=== PATIENT | male | born 1960 | race Caucasian/White ===

== ENCOUNTER 2017-07-07 08:10 | Day surgery (SDC) | payer MEDICARE ==
[~2017-07-07 08:10] MED LIST: Lactated Ringers 1,000 ML IV SCH
[2017-07-07] MEDS ORDERED: DIPRIVAN 200 MG/20 ML IV ONE (08:11)
[2017-07-07] MEDS ORDERED: Ketamine HCl 50 MG/ML IV ONE (08:11)
--- NOTE | 2017-07-07 08:20 | HP ---
DATE OF SURGERY: 07/07/2017 HISTORY OF PRESENT ILLNESS: The patient is a 56 year-old with stomach aches epigastrium now some abdomen ache, occasional nausea and vomiting. Also past history of polyps. He is in need of follow up upper and lower endoscopy. No change in bowel movements. No current bloody stools. Epigastric and mid abdominal pain unclear etiology could be gastritis, peptic ulcer disease, celiac or other etiology as well as history of polyps. I feel the patient will benefit from upper and lower endoscopy for further evaluation. The patient has history of deep venous thrombosis and is on Eliquis so he will need to temporarily hold the Eliquis denzel-operatively. PAST MEDICAL HISTORY: Diabetes, chronic back pain, history of deep venous thrombosis in the past. PAST SURGICAL HISTORY: Penile prosthesis, spinal stimulator. MEDICATIONS: Includes Ativan, bupropion, Eliquis, Cialis, duloxetine, Eliquis, furosemide, lamotrigine, lisinopril, metformin, pantoprazole, potassium chloride, Tamsulosin, tizanidine, pioglitazone, trazodone. ALLERGIES: NKDA. FAMILY HISTORY: Heart disease and diabetes. SOCIAL HISTORY: No alcohol abuse. REVIEW OF SYSTEMS: Twelve systems reviewed per admission assessment. No chest pain or palpitations other systems negative or noncontributory as above and per preadmission questionnaire. PHYSICAL EXAMINATION: GENERAL: No acute distress. HEENT: Sclerae nonicteric. NECK: No JVD. CHEST: Equal excursion, nonlabored breathing. CVS: Regular rate and rhythm. ABDOMEN: Soft. No peritoneal signs. EXTREMITIES: No significant edema. NEURO: Alert, moving extremities symmetrically. No gross motor deficits noted. RECTAL: Deferred timed to endoscopy exam. IMPRESSION: Mid to upper abdominal pain associated with some nausea and vomiting as well as history of polyps, in need of EGD and colonoscopy for further evaluation. He was shown the risk sheet and explained the procedure in detail including but not limited to bleeding or infection, risk of bowel injury or perforation possibly requiring open procedure, risk of missed or nondiagnosis or incomplete exam possibly requiring barium enema, other studies or procedures. He understands and agrees to the planned procedure and will proceed with EGD and colonoscopy as an outpatient under MAC anesthesia.
[2017-07-07 12:18] VITALS: PULSE 70; O2SAT 97
[2017-07-07 12:22] VITALS: BP 158/94
--- NOTE | 2017-07-07 15:31 | OP ---
SURGERY DATE/TIME: 07/07/2017 1023 PREOPERATIVE DIAGNOSIS: History of mid abdomen epigastric pain, nausea and vomiting as well as polyps. Need for upper and lower endoscopy. POSTOPERATIVE DIAGNOSES: 1) Erosive gastritis. 2) Poor colon prep limiting exam. 3) Mild diverticulosis. 4) Small internal and external hemorrhoids. 5) Small raised lesion versus early polyp or hyperplastic lesion rectum. PROCEDURES: 1) EGD with cold biopsy of the antrum Helicobacter pylori. 2) Cold biopsy of small bowel to evaluate for celiac sprue. 3) Colonoscopy to cecum with hot biopsy raised lesion versus early polyp of rectum. SURGEON: Dr. Sean Lyons. ANESTHESIA: MAC. ESTIMATED BLOOD LOSS: Minimal. INDICATIONS: As noted above. Risks and benefits explained in detail and not limited to and consent obtained. DESCRIPTION OF PROCEDURE AND FINDINGS: The patient is taken to the operating room. MAC anesthesia introduced. After official time out and no disagreement with planned procedure, a bite block positioned. Video gastroscope easily passed down the esophagus through the patent pylorus to the junction of the second and third portion of the duodenum. Given his symptom complaints of nausea, vomiting, abdominal pain, I felt he warranted biopsy for celiac sprue. A cold biopsy taken in the small bowel to evaluate for celiac sprue. There were no signs of any ulcers or obvious masses. Good hemostasis noted. The scope pulled back in the stomach. He did have some erosive gastritis. Cold biopsy taken to evaluate for Helicobacter pylori. There were no signs of any obvious ulcers, no signs of any obvious polyps, masses or other mucosal lesions. On retroflex the gastroesophageal junction is snug against the scope. There were no signs of any hiatal hernia. The scope pulled back to gastroesophageal junction. The Z-line was crisp. No signs of any esophagitis. No signs of any Mcadams's or any obvious mass. Gastroesophageal junction was about 40 cm. The remainder of the esophagus grossly unremarkable. No signs of any obvious mucosal lesions on withdrawal of the scope but the esophagus did have a few tertiary esophageal contractions. The scope is withdrawn. The patient tolerated this procedure well. Attention was then turned to the colonoscopy. Digital rectal exam did not reveal any masses. He did have some internal and external hemorrhoids. Video colonoscope inserted and passed up the tortuous sigmoid, descending and transverse colon, descending colon. Appendiceal orifice and valve well visualized. Prep overall was poor with several areas of liquidy, semisolid and solid stool limiting exam. It was too thick to suction completely through the scope. It was suction irrigated as well as possible but did limit the exam for small lesions. On slow careful withdrawal of the scope over 12 to 15 minutes there was no signs of any large polyps, masses or obstructing lesions. He did have some mild diverticulosis. Again the prep did limit the exam for small lesions. He did have a very small raised lesion versus early polyp or hyperplastic lesion in the rectum that was removed with hot biopsy forceps. Good hemostasis was noted. Otherwise he had some small internal and external hemorrhoids. The scope is withdrawn. The patient tolerated the procedure well. Findings discussed with the family out in the waiting area.
== END 2017-07-07 12:00 | disposition home or self-care (01) ==
LOC: SDC 08:10
PROVIDERS: ATTEND Surgery
DX: K29.00 Acute gastritis without bleeding (principal); K57.90 Diverticulosis of intestine, part unspecified, without perforation or abscess without bleeding; K64.4 Residual hemorrhoidal skin tags; K64.8 Other hemorrhoids; K63.9 Disease of intestine, unspecified; K62.1 Rectal polyp
CPT/HCPCS: 88305; J2704

== ENCOUNTER 2024-03-03 06:50 | Day surgery (SDC) | payer MEDICARE ==
[2012-11-13 13:15] VITALS: BP 148/93
== END 2024-03-03 07:04 | disposition home or self-care (01) ==
LOC: SDC-PAIN 06:50
PROVIDERS: ATTEND Psychiatry & Neurology Pain Medicine
DX: Z53.8 Procedure and treatment not carried out for other reasons (principal)

== ENCOUNTER 2024-03-17 10:19 | Day surgery (SDC) | payer MEDICARE ==
[2012-11-13 13:15] VITALS: BP 148/93
[2024-03-17] MEDS ORDERED: LIDOCAINE HCL 1% AMPUL 5 ML IJ ONE (10:20)
[2024-03-17] MEDS ORDERED: Sodium Chloride 0.9(Preservative Free) 10 ML IJ ONE (10:20)
[2024-03-17] MEDS ORDERED: Depo-Medrol 40 MG/ML IM ONE (10:20)
[2024-03-17] MEDS ORDERED: propofoL IV ONE (12:08)
--- NOTE | 2024-03-17 14:36 | XRAY ---
Indication: Lumbar CHATA. Intraoperative fluoroscopy was provided for 18 seconds. 3 digital spot images submitted for interpretation demonstrates needle tip projecting posterior to L4-L5 interspace. Small amount of contrast injected for needle tip placement. Correlate with intraoperative findings/report.
--- NOTE | 2024-03-17 14:38 | XRAY ---
18 seconds of fluoroscopy was used in surgery for a lumbar CHATA.
== END 2024-03-17 12:46 | disposition home or self-care (01) ==
LOC: SDC-PAIN 10:19
PROVIDERS: ATTEND Psychiatry & Neurology Pain Medicine
DX: M54.16 Radiculopathy, lumbar region (principal); E11.9 Type 2 diabetes mellitus without complications
CPT/HCPCS: 62323; 72100; 77003; 82947; J2704; Q9966

== ENCOUNTER 2024-11-17 07:28 | Day surgery (SDC) | payer MEDICARE ==
[2012-11-13 13:15] VITALS: BP 148/93
[2024-11-17] MEDS ORDERED: BUPIVACAINE 0.5% VIAL IJ ONE (07:29)
[2024-11-17] MEDS ORDERED: methylPREDNISolone acetate IM ONE (07:29)
[2024-11-17] MEDS ORDERED: propofoL IV ONE (08:58)
[2024-11-17] MEDS ORDERED: Lactated Ringers 1,000 ML IV ONE (09:56)
--- NOTE | 2024-11-17 10:26 | XRAY ---
Indication: Bilateral L4-S1 MBB. Intraoperative fluoroscopy provided for 17 seconds. Single digital spot image submitted for interpretation demonstrates posterior needle tips projecting over expected left and right L4-S1 nerve roots. Correlate with intraoperative findings/report. Incidental incompletely visualized epidural lead.
--- NOTE | 2024-11-17 13:07 | XRAY ---
17 seconds of fluoroscopy were used in surgery bilateral L4-S1 MBB.
== END 2024-11-17 09:30 | disposition home or self-care (01) ==
LOC: SDC-PAIN 07:28
PROVIDERS: ATTEND Psychiatry & Neurology Pain Medicine
DX: M47.817 Spondylosis without myelopathy or radiculopathy, lumbosacral region (principal); E11.9 Type 2 diabetes mellitus without complications

== ENCOUNTER 2024-11-19 11:53 | Observation (INO) | payer MEDICARE ==
--- NOTE | 2024-11-19 12:20 | ERPHSYRPT ---
- History of Present Illness Time Seen by Provider: 11/19/24 12:10 Source: patient Patient Subjective Stated Complaint: Pt c/o of sudden onset of SOB last night and it has continued throughout the night, pt did have some ashley chest pressure below his pectorials Triage Nursing Assessment: Pt brought to the ER by his , hypertensive, tachypnic, denies pain, pulses normal, skin n/w/d, ashley lungs rhonchi and wheezing, hx of CHF a few years ago, pt had a numbing procedure to his lower back this week at [facility], denies N&V, doesn't appear to be in any distress Physician History: Patient is a 64-year-old male who presents with shortness of breath that began last night while at rest. The patient's provides some of the history. The patient was just sitting outside last night when he suddenly began to feel short of breath. The patient does report a history of congestive heart failure a few years ago. The patient denies any swelling of his legs or feet. Patient reports that he does have a little bit of chest discomfort. Patient denies any history of asthma or COPD. Timing/Duration: yesterday Activities at Onset: rest Quality: pressure Location: other (Sub-pectorals) Chest Pain Radiation: no radiation Aspirin Treatment Today: no aspirin today Allergies/Adverse Reactions: No Known Drug Allergies Allergy (Verified 11/19/24 12:07) Home Medications: Furosemide 20 mg [Lasix 20 mg] 20 mg PO QA 07/01/17 [History] Metformin HCl 500 mg [Glucophage 500 MG] 1 tab PO BID 07/01/17 [History] Potassium Chloride [K-Dur] 10 meq PO QAM 07/01/17 [History] Tamsulosin HCl 0.4 mg [Flomax 0.4 MG] 0.8 mg PO DAILY 07/01/17 [History] Trazodone HCl 50 mg [Desyrel 50 mg] 150 mg PO QHS 07/01/17 [History] Apixaban [Eliquis 2.5 mg Tablet] 5 mg PO BID 11/19/24 [History] Carvedilol 3.125 mg [Coreg 3.125 MG] 3.125 mg PO BID 11/19/24 [History] Ergocalciferol (Vitamin D2) [Vitamin D2] 50,000 unit PO WEEKLY 11/19/24 [History] Escitalopram Oxalate [Lexapro] 10 mg PO DAILY 11/19/24 [History] Fluticasone Propionate [Flonase Nasal] 16 gm NS BID 11/19/24 [History] Glipizide 10 mg [Glucotrol 10 MG] 20 mg PO BID 11/19/24 [History] Oxycodone HCl/Acetaminophen [Oxycodone-Acetaminophn 7.5-325] 1 tab PO TID PRN 11/19/24 [History] Rosuvastatin Calcium 20 mg PO HS 11/19/24 [History] Semaglutide [Ozempic] 2 mg SQ WEEKLY 11/19/24 [History] Sildenafil Citrate 100 mg PO .30 MIN PRIOR TO SEX PRN 11/19/24 [History] Hx Tetanus, Diphtheria Vaccination/Date Given: Yes Hx Influenza Vaccination/Date Given: Yes (2011) Hx Pneumococcal Vaccination/Date Given: Yes (2011) Travel Risk - International Travel Have you traveled outside of the country in past 3 weeks: No - Emerging Infectious Disease Are you exhibiting symptoms associated with any current EIDs: No - Review of Systems Constitutional: No Fever Respiratory: Cough (Productive thick sputum), Dyspnea, Dyspnea on Exertion (BEACH), Wheezing Cardiac: Chest Pain, No Edema All Other Systems: Reviewed and Negative - Past Medical History Pertinent Past Medical History: Yes Neurological History: Peripheral Neuropathy ENT History: No Pertinent History Cardiac History: Coronary Artery Disease, High Cholesterol, Hypertension Respiratory History: No Pertinent History Endocrine Medical History: Diabetes Type II Musculoskeletal History: Degenerative Disk Disease, Osteoarthritis GI Medical History: No Pertinent History History: No Pertinent History Psycho-Social History: No Pertinent History Male Reproductive Disorders: Prostate Problems Other Medical History: SX HX: SINGLE STENT PLACEMENT 02/2023, SPINAL CORD STIMULATOR PLACED 2014 BUT HAS STOPPED USING IT "IT WASN'T DOING ANYTHING". BILATERAL FEM/POP BYPASS 10/31/23. - Past Surgical History Past Surgical History: Yes Neuro Surgical History: Other Cardiac: No Pertinent History Respiratory: No Pertinent History Gastrointestinal: No Pertinent History Genitourinary: Other Musculoskeletal: No Pertinent History Male Surgical History: No Pertinent History Other Surgical History: had penile implant and has had a spinal stimulator for pain Significant Family History: diabetes, hypertension - Social History Smoking Status: Current every day smoker Exposure to second hand smoke: Yes Drug Use: none - Social Determinants of Health Will the patient participate in the screening: Yes Do you worry about a steady place to live?: No Do you have any problems with any of the following?: No known problems In the past 12 months,have you had to go without utilities?: No Transportation Issues: No Has anyone in your support network made you feel unsafe?: No Have you or anyone in your house had to go w/o enough food: No - Nursing Vital Signs Nursing Vital Signs: Initial Vital Signs Temperature 97.4 F 11/19/24 11:55 Pulse Rate 94 H 11/19/24 11:55 Respiratory Rate 23 11/19/24 11:55 Blood Pressure 152/88 11/19/24 11:55 O2 Sat by Pulse Oximetry 94 L 11/19/24 11:55 Pain Scale Pain Intensity 0 - Physical Exam General Appearance: mild distress Neck Exam: normal inspection Respiratory Exam: wheezing (Diffuse bilateral wheezes) Cardiovascular Exam: regular rate/rhythm, normal heart sounds Gastrointestinal/Abdomen Exam: soft, normal bowel sounds Extremity Exam: normal inspection, No pedal edema Neurologic Exam: alert, oriented x 3 Skin Exam: warm, dry SpO2 Interpretation: borderline oxygenation, hypoxic, O2 applied (Initial O2 saturation 92%) SpO2: 94 O2 Delivery: Nasal Cannula (2L) - Course EKG Interpreted by Me: RATE (97), Sinus Rhythm, NORMAL AXIS, NORMAL INTERVALS, NORMAL QRS, NORMAL ST-T - Radiology Exams Chest X-ray Interpretation: Interpreted by me, Reviewed by me, Other Ordered Tests: Active Orders 24 hr Category Date Time Status Up With Assistance ROUTINE Activity 11/19/24 16:45 Active Call Admit Doctor for Orders ON ADMISSION Care 11/19/24 16:45 Active Code Status Order ROUTINE Care 11/19/24 16:45 Active EKG-ER Only STAT Care 11/19/24 12:16 Completed Fall Protocol ROUTINE Care 11/19/24 16:45 Active POCT Glucose Check ACHS Care 11/19/24 16:[address] in Observation ROUTINE Care 11/19/24 16:45 Active Pulse Oximetry (ED) STAT Care 11/19/24 12:16 Completed Telemetry q6 Care 11/19/24 16:45 Active Consistent Carbohydrate Diet 1800 Calorie Diet 11/19/24 Dinner Active CHEST 1 VIEW (PORTABLE) Stat Exams 11/19/24 12:17 Completed BLOOD CULTURE Stat Lab 11/19/24 12:36 Received CBC W DIFF Stat Lab 11/19/24 12:20 Completed CMP Stat Lab 11/19/24 12:20 Completed Lactic Acid Stat Lab 11/19/24 12:28 Completed NT PRO BNPII Stat Lab 11/19/24 12:20 Completed TROPONIN Q4H Lab 11/19/24 12:20 Completed TROPONIN Q4H Lab 11/19/24 16:25 Completed TROPONIN Q4H Lab 11/19/24 20:30 Ordered UA W/RFX UR CULTURE Stat Lab 11/19/24 13:02 Completed Oxygen Nasal Cannula 2 lpm RT 11/19/24 16:45 Active Pulse Oximetry CONTINUOUS RT 11/19/24 16:45 Active Respiratory Therapy Assessment DAILY RT 11/19/24 12:40 Completed Respiratory Therapy Consult ONCE RT 11/19/24 16:45 Active Transfer Order Routine Transfer 11/19/24 Completed Medication Summary Generic Name Dose Route Start Last Admin Trade Name Freq PRN Reason Stop Dose Admin Acetaminophen 650 mg 11/19/24 17:38 Acetaminophen 325 Mg Tablet PO 12/19/24 17:37 Q4H PRN PRN PAIN, FEVER, HEADACHE Albuterol/Ipratropium 3 ml 11/19/24 19:00 Ipratropium/Albuterol Sulfate 3 Ml Ampul.Neb IH 12/19/24 18:59 Q6HRT [facility] Apixaban 5 mg 11/19/24 22:00 Apixaban 2.5 Mg Tablet PO 12/19/24 21:59 BID [facility] Carvedilol 3.125 mg 11/19/24 22:00 Carvedilol 3.125 Mg Tablet PO 12/19/24 21:59 BID [facility] Methylprednisolone Sodium 0 mg 11/19/24 22:00 Succinate 40 mg/ Sterile Water IV 12/19/24 21:59 1 ml Q12HT [facility] Ergocalciferol 50,000 unit 11/19/24 17:45 Ergocalciferol (Vitamin D2) 50,000 Unit Capsule PO 12/19/24 17:44 WEEKLY [facility] Escitalopram Oxalate 10 mg 11/20/24 10:00 Escitalopram Oxalate 10 Mg Tablet PO 12/20/24 09:59 DAILY [facility] Furosemide 40 mg 11/19/24 17:45 11/19/24 18:34 Furosemide 40 Mg/4 Ml Vial IV 12/19/24 17:44 40 mg Q12H LAURA Administration Ceftriaxone Sodium 1 gm in 100 mls @ 200 mls/hr 11/20/24 10:00 Rocephin 1 Gm / 100 Ml Nacl IV 12/20/24 09:59 Q24H10 [facility] Azithromycin 500 mg/ Sodium 250 mls @ 250 mls/hr 11/20/24 10:00 Chloride IV 12/20/24 09:59 Q24H10 [facility] Insulin Human Lispro 0 unit 11/19/24 17:38 Insulin Lispro 1 Unit SQ 12/19/24 17:37 UD PRN HYPERGLYCEMIA Nicotine 14 mg 11/19/24 17:45 11/19/24 18:34 Nicotine 14 Mg/Patch Patch TOP 12/19/24 17:44 14 mg Q24H LAURA Administration Non-Formulary Medication 10 meq 11/20/24 10:00 Potassium Chloride [K-Dur] PO 12/20/24 09:59 QAM [facility] Non-Formulary Medication 1 tab 11/19/24 17:42 Oxycodone Hcl/Acetaminophen [Oxycodone-Acetaminophn 7.5-325] PO TID PRN PAIN Non-Formulary Medication 20 mg 11/19/24 22:00 Rosuvastatin Calcium [Rosuvastatin Calcium] PO 12/19/24 21:59 HS [facility] Ondansetron HCl 4 mg 11/19/24 17:38 Ondansetron Hcl 4 Mg/2 Ml Vial IV 12/19/24 17:37 Q6H PRN PRN NAUSEA/VOMITING Pantoprazole Sodium 40 mg 11/19/24 17:45 11/19/24 18:33 Pantoprazole 40 Mg Vial IV 12/19/24 17:44 40 mg Q24H LAURA Administration Tamsulosin HCl 0.8 mg 11/20/24 10:00 Tamsulosin Hcl 0.4 Mg Cap PO 12/20/24 09:59 DAILY [facility] Trazodone HCl 150 mg 11/19/24 22:00 Trazodone Hcl 50 Mg Tablet PO 12/19/24 21:59 QHS [facility] Discontinued Medications Generic Name Dose Route Start Last Admin Trade Name Freq PRN Reason Stop Dose Admin Albuterol/Ipratropium 3 ml 11/19/24 12:21 11/19/24 12:35 Ipratropium/Albuterol Sulfate 3 Ml Ampul.Neb IH 11/19/24 12:22 3 ml STAT ONE Administration Albuterol/Ipratropium Confirm 11/19/24 12:28 Ipratropium/Albuterol Sulfate 3 Ml Ampul.Neb Administered 11/19/24 12:29 Dose 3 ml IH .STK-MED ONE Clopidogrel Bisulfate 75 mg 11/20/24 10:00 Clopidogrel Bisulfate 75 Mg Tablet PO 12/20/24 09:59 DAILY [facility] Methylprednisolone Sodium 0 mg 11/19/24 15:30 11/19/24 15:43 Succinate 125 mg/ Sterile IV 11/19/24 15:31 125 mg Water 2 ml STAT ONE Administration Furosemide 40 mg 11/19/24 13:11 11/19/24 13:42 Furosemide 40 Mg/4 Ml Vial IV 11/19/24 13:12 40 mg STAT ONE Administration Furosemide Confirm 11/19/24 13:41 Furosemide 40 Mg/4 Ml Vial Administered 11/19/24 13:42 Dose 40 mg .ROUTE .STK-MED ONE Methylprednisolone Sodium Succinate Confirm 11/19/24 15:41 Methylprednis Sod Succ 125 Mg/2 Ml Vial Administered 11/19/24 15:42 Dose 125 mg .ROUTE .STK-MED ONE Non-Formulary Medication 200 mg 11/20/24 10:00 Lamotrigine [Lamictal] PO 12/20/24 09:59 DAILY [facility] Sterile Water Confirm 11/19/24 15:41 Water For Injection,Sterile 10 Ml Vial Administered 11/19/24 15:42 Dose 10 ml IJ .STK-MED ONE Lab/Rad Data: Laboratory Result Diagrams 11/19/24 12:20 11/19/24 12:20 Laboratory Results 11/19/24 11/19/24 11/19/24 Range/Units 16:25 13:02 12:28 WBC (4.23-9.07) x10^3/uL RBC (4.63-6.08) x10^6/uL Hgb (13.7-17.5) g/dL Hct (40.1-51.0) % MCV (79.0-92.2) fL MCH (25.7-32.2) pg MCHC (32.3-36.5) g/dL RDW (11.6-14.4) % Plt Count (163-337) x10^3/uL MPV (9.4-12.4) fL Gran % (34.0-67.9) % Immature Gran % (Auto) (0.001-0.429) % Nucleat RBC Rel Count (0.00-0.2) % Eos # (Auto) (0.04-0.54) x10^3/uL Immature Gran # (Auto) (0.001-0.031) x10^3u/L Absolute Lymphs (auto) (1.32-3.57) x10^3/uL Absolute Monos (auto) (0.30-0.82) x10^3/uL Absolute Nucleated RBC (0.00-0.012) x10^3u/L Lymphocytes % (21.8-53.1) % Monocytes % (5.3-12.2) % Eosinophils % (0.8-7.0) % Basophils % (0.2-1.2) % Absolute Granulocytes (1.78-5.38) x10^3/uL Basophils # (0.01-0.08) x10^3/uL Sodium (135-145) mmol/L Potassium (3.5-5.1) mmol/L Chloride (98-107) mmol/L Carbon Dioxide (22-30) mmol/L Anion Gap (5-15) MEQ/L BUN (9-20) mg/dL Creatinine (0.66-1.25) mg/dL Estimated GFR ML/MIN Glucose (74-106) mg/dL Lactic Acid 1.8 (0.4-2.0) Calcium (8.4-10.2) mg/dL Total Bilirubin (0.2-1.3) mg/dL AST (17-59) U/L ALT (0-50) U/L Alkaline Phosphatase (38-126) U/L Troponin I < 0.012 (0.000-0.033) ng/mL NT-Pro-B Natriuret Pep (<300) pg/mL Serum Total Protein (6.3-8.2) g/dL Albumin (3.5-5.0) g/dL Urine Color Yellow (Yellow) Urine Appearance Clear (Clear) Urine pH 7.0 (4.6-8.0) Ur Specific [place]ster 1.010 (1.005-1.030) Urine Protein 30 (Negative) Urine Glucose (UA) Negative (Negative) mg/dL Urine Ketones Negative (Negative) Urine Blood Negative (Negative) Urine Nitrite Negative (Negative) Urine Bilirubin Negative (Negative) Urine Urobilinogen 1.0 A (0.2) mg/dL Ur Leukocyte Esterase Negative (Negative) U Hyaline Cast (Auto) NONE SEEN (0-2) /LPF Urine Microscopic RBC 0-2 (0-5) /HPF Urine Microscopic WBC 0-2 (0-5) /HPF Ur Epithelial Cells None Seen (None Seen) /HPF Urine Bacteria None Seen (None Seen) /HPF Urine Culture Reflexed NO (NO) Slides for Path Review 11/19/24 11/19/24 11/19/24 Range/Units 12:20 12:20 12:20 WBC 14.2 H (4.23-9.07) x10^3/uL RBC 4.95 (4.63-6.08) x10^6/uL Hgb 13.9 (13.7-17.5) g/dL Hct 42.6 (40.1-51.0) % MCV 86.1 (79.0-92.2) fL MCH 28.1 (25.7-32.2) pg MCHC 32.6 (32.3-36.5) g/dL RDW 14.4 (11.6-14.4) % Plt Count 270 (163-337) x10^3/uL MPV 9.0 L (9.4-12.4) fL Gran % 73.5 H (34.0-67.9) % Immature Gran % (Auto) 0.6 H (0.001-0.429) % Nucleat RBC Rel Count 0.0 (0.00-0.2) % Eos # (Auto) 0.61 H (0.04-0.54) x10^3/uL Immature Gran # (Auto) 0.08 H (0.001-0.031) x10^3u/L Absolute Lymphs (auto) 1.26 L (1.32-3.57) x10^3/uL Absolute Monos (auto) 1.73 H (0.30-0.82) x10^3/uL Absolute Nucleated RBC 0.00 (0.00-0.012) x10^3u/L Lymphocytes % 8.9 L (21.8-53.1) % Monocytes % 12.2 (5.3-12.2) % Eosinophils % 4.3 (0.8-7.0) % Basophils % 0.5 (0.2-1.2) % Absolute Granulocytes 10.41 H (1.78-5.38) x10^3/uL Basophils # 0.07 (0.01-0.08) x10^3/uL Sodium 131 L (135-145) mmol/L Potassium 4.5 (3.5-5.1) mmol/L Chloride 93 L (98-107) mmol/L Carbon Dioxide 26 (22-30) mmol/L Anion Gap 16.8 H (5-15) MEQ/L BUN 11 (9-20) mg/dL Creatinine 0.81 (0.66-1.25) mg/dL Estimated GFR 99.1 ML/MIN Glucose 132 H (74-106) mg/dL Lactic Acid (0.4-2.0) Calcium 9.9 (8.4-10.2) mg/dL Total Bilirubin 0.70 (0.2-1.3) mg/dL AST 29 (17-59) U/L ALT 19 (0-50) U/L Alkaline Phosphatase 85 (38-126) U/L Troponin I < 0.012 (0.000-0.033) ng/mL NT-Pro-B Natriuret Pep 680 (<300) pg/mL Serum Total Protein 8.6 H (6.3-8.2) g/dL Albumin 4.8 (3.5-5.0) g/dL Urine Color (Yellow) Urine Appearance (Clear) Urine pH (4.6-8.0) Ur Specific [place] (1.005-1.030) Urine Protein (Negative) Urine Glucose (UA) (Negative) mg/dL Urine Ketones (Negative) Urine Blood (Negative) Urine Nitrite (Negative) Urine Bilirubin (Negative) Urine Urobilinogen (0.2) mg/dL Ur Leukocyte Esterase (Negative) U Hyaline Cast (Auto) (0-2) /LPF Urine Microscopic RBC (0-5) /HPF Urine Microscopic WBC (0-5) /HPF Ur Epithelial Cells (None Seen) /HPF Urine Bacteria (None Seen) /HPF Urine Culture Reflexed (NO) Slides for Path Review YES Chest x-ray: Portable chest demonstrates new borderline cardiomegaly, central vascular congestion, and pulmonary edema favoring mild or early cardiac decompensation/CHF. Superimposed pneumonia not completely excluded. Bony thorax intact with new epidural leads terminating T8. Reported by: CHILO MARTINEZ DO Signed by: CHILO MARTINEZ DO Signed date/time: 11/19/24 1249 - Progress Air Movement: good Progress Note: 11/19/24 13:44 Patient reassessed. Patient states he is breathing much better after the breathing treatment. Discussed radiographic results with the patient. Discussed treatment with IV Lasix. Patient agreeable to admission. Patient had significant urinary output after the Lasix. Attempted to turn the patient's oxygen down and see what the patient's oxygen saturation did. The patient's oxygen saturation decreased gradually to 91% on room air. Discussed with the patient that because this was a resting saturation I do not feel comfortable discharging the patient. Patient is agreeable to admission to the hospital. Discussed the patient's presentation, lab work, x-ray, and symptoms with the hospitalist who agreed to admit the patient. Blood Culture(s) Obtained: Yes Antibiotics given: No Will see patient in: hospital (observation) Counseled pt/family regarding: lab results, diagnosis, rad results Medical Desision Making - Discussion of managment Care discussed with:: hospitalist Reviewed:: Test results Agreed on:: place in obs - Diagnostic Testing Diagnostic test were ordered, analyzed, and reviewed by me: Yes Radiological Interpretation: Interpreted by me, Reviewed by me - Risk of complications The pt has a high risk of morbidity or mortality based on: Decision regarding hospitilization or escalation of hosp level of care - Departure Departure Disposition: Observation Clinical Impression: COPD (chronic obstructive pulmonary disease) Qualifiers: COPD type: unspecified COPD Qualified Code(s): J44.9 - Chronic obstructive pulmonary disease, unspecified CHF (congestive heart failure) Qualifiers: Heart failure type: unspecified Heart failure chronicity: acute on chronic Q ualified Code(s): I50.9 - Heart failure, unspecified Dyspnea Qualifiers: Dyspnea type: shortness of breath Qualified Code(s): R06.02 - Shortness of breath Condition: Stable Critical Care Time: No
[2024-11-19 12:25] LABS: BASOPHIL % 0.5 % (0.2-1.2); Basophil (Absolute #) 0.07 x10^3/uL (0.01-0.08); Eosinophil (Absolute #) 0.61 x10^3/uL (0.04-0.54); Hematocrit 42.6 % (40.1-51.0); Hemoglobin 13.9 g/dL (13.7-17.5); IMMATURE GRAN # 0.08 x10^3u/L (0.001-0.031); IMMATURE GRAN % 0.6 % (0.001-0.429); Lymphocyte (Absolute #) 1.26 x10^3/uL (1.32-3.57); Mean Corpuscular Hemoglobin 28.1 pg (25.7-32.2); Mean Corpuscular Hgb Concent. 32.6 g/dL (32.3-36.5); Monocyte (Absolute #) 1.73 x10^3/uL (0.30-0.82); NUCLEATED RBC # 0.00 x10^3u/L (0.00-0.012); NUCLEATED RBC % 0.0 % (0.00-0.2); Platelet Count 270 x10^3/uL (163-337); Red Blood Count 4.95 x10^6/uL (4.63-6.08); White Blood Count 14.2 x10^3/uL (4.23-9.07)
[2024-11-19] MEDS ORDERED: DUONEB 0.5-3 MG/3 ml Neb IH ONE (12:28)
[2024-11-19 12:32] LABS: Calcium 9.9 mg/dL (8.4-10.2); Carbon Dioxide 26.0 mmol/L (22-30); Creatinine 1 0.81 mg/dL (0.66-1.25); EST GLOMERULAR FILTRATION RATE 99.1 ML/MIN; Glucose 132.0 mg/dL (74-106); Potassium 4.5 mmol/L (3.5-5.1); SGOT/AST 29.0 U/L (17-59); SGPT/ALT 19.0 U/L (0-50); Total Protein 8.6 g/dL (6.3-8.2)
[2024-11-19] MEDS: DUONEB 0.5-3 MG/3 ml Neb IH ONE (12:35)
[2024-11-19 12:46] LABS: NT PRO BNPII 680.0 pg/mL (<300)
--- NOTE | 2024-11-19 12:52 | XRAY ---
Indication: Dyspnea. Comparison: November 13, 2012 Portable chest demonstrates new borderline cardiomegaly, central vascular congestion, and pulmonary edema favoring mild or early cardiac decompensation/CHF. Superimposed pneumonia not completely excluded. Bony thorax intact with new epidural leads terminating T8.
[2024-11-19 13:10] LABS: Slide Review 1 YES
[2024-11-19 13:29] LABS: Glucose, Urine Negative (Negative); Protein,Urine Dip 30 (Negative); RBC 0-2 /HPF (0-5); WBC 0-2 /HPF (0-5)
[2024-11-19] MEDS ORDERED: Lasix 40 MG/4 ML ONE (13:41)
[2024-11-19] MEDS: Lasix 40 MG/4 ML IV ONE (13:42)
[2024-11-19] MEDS ORDERED: Sterile H2O 10 ml IJ ONE ×2 (15:41→21:03)
[2024-11-19] MEDS: solu-MEDROL 125 MG, Sterile H2O 10 ml 2 ML IV ONE (15:43)
--- NOTE | 2024-11-19 17:21 | PCM.HP ---
History of Present Illness - Chief Complaint Chief Complaint: shortness of breath Date: 11/19/24 History of Present Illness: is a 64 year old male with a pmhx of congestive heart failure, coronary artery disease status post stent placement, hypertension, hyperlipidemia, DVT (left leg diagnosed 6 year ago),diabetes mellitus, depression, and sciatica, who presented to the emergency department on 11/19/24 with complaints of acute shortness of breath. He reports the dyspnea began suddenly the prior evening and persisted through the night, disrupting his sleep. He also endorses a chronic productive cough for the past month with thick sputum, though he is unable to specify the color. He denies chest pain, palpitations, fevers, or recent sick contacts. He reports adherence to his home regimen of furosemide 20 mg daily. On arrival, he was tachypneic and hypoxic and required 2 L of supplemental oxygen. He received IV furosemide, Solu-Medrol, and a DuoNeb treatment in the ED, after which he was able to maintain oxygen saturations on room air. CXR revealed new borderline cardiomegaly with central vascular congestion and pulmonary edema, most consistent with mild or early CHF decompensation; post- pneumonia changes were not completely excluded. Laboratory evaluation showed leukocytosis with WBC 14.2, hyponatremia (Na 131), hypochloremia (Cl 93), elevated anion gap 16.8, and elevated total protein at 8.6. Pro-BNP was elevated at 680, while serial troponins were negative. On exam, there was no peripheral edema or recent weight gain. The patient is a simy-ttfh-dwc-day smoker with no known chronic lung disease. No recent echocardiogram is available for review. Given his presentation, he is being admitted for acute CHF exacerbation with possible superimposed pneumonia. - Review of Systems Constitutional: No Symptoms Eyes: No Symptoms Ears, Nose, & Throat: No Symptoms Respiratory: Cough, Short Of Breath, Wheezing Cardiac: No Symptoms Abdominal/Gastrointestinal: No Symptoms Genitourinary Symptoms: No Symptoms Musculoskeletal: No Symptoms Skin: No Symptoms Neurological: No Symptoms Psychological: No Symptoms Endocrine: No Symptoms Hematologic/Lymphatic: No Symptoms Immunological/Allergic: No Symptoms Medications & Allergies Home Medications: Home Medication List Duloxetine HCl 30 mg [Cymbalta 30 MG Capsule] 60 tab PO BID 07/01/17 [History Confirmed 11/19/24] Duloxetine HCl [Cymbalta] 60 mg PO QAM 07/01/17 [History Confirmed 11/19/24] Furosemide 20 mg [Lasix 20 mg] 20 mg PO QAM 07/01/17 [History Confirmed 11/19/24] Metformin HCl 500 mg [Glucophage 500 MG] 2 tab PO BID 07/01/17 [History Confirmed 11/19/24] Potassium Chloride [K-Dur] 10 meq PO QAM 07/01/17 [History Confirmed 11/19/24] Tamsulosin HCl 0.4 mg [Flomax 0.4 MG] 0.8 mg PO DAILY 07/01/17 [History Confirmed 11/19/24] Trazodone HCl 50 mg [Desyrel 50 mg] 150 mg PO QHS 07/01/17 [History Confirmed 11/19/24] lamoTRIgine [Lamictal] 200 mg PO DAILY 07/01/17 [History Confirmed 11/19/24] Apixaban [Eliquis 2.5 mg Tablet] 5 mg PO BID 11/19/24 [History Confirmed 11/19/24] Carvedilol 3.125 mg [Coreg 3.125 MG] 3.125 mg PO BID 11/19/24 [History Confirmed 11/19/24] Clopidogrel Bisulfate [Clopidogrel] 75 mg PO DAILY 11/19/24 [History Confirmed 11/19/24] Ergocalciferol (Vitamin D2) [Vitamin D2] 50,000 unit PO WEEKLY 11/19/24 [History Confirmed 11/19/24] Escitalopram Oxalate [Lexapro] 10 mg PO DAILY 11/19/24 [History Confirmed 11/19/24] Glipizide 10 mg [Glucotrol 10 MG] 20 mg PO BID 11/19/24 [History Confirmed 11/19/24] Oxycodone HCl/Acetaminophen [Oxycodone-Acetaminophn 7.5-325] 1 tab PO TID PRN 11/19/24 [History Confirmed 11/19/24] Rosuvastatin Calcium 20 mg PO HS 11/19/24 [History Confirmed 11/19/24] Semaglutide [Ozempic] 2 mg SQ WEEKLY 11/19/24 [History Confirmed 11/19/24] Sildenafil Citrate 100 mg PO .30 MIN PRIOR TO SEX PRN 11/19/24 [History Confirmed 11/19/24] Allergies/Adverse Reactions: Allergies Allergy/AdvReac Type Severity Reaction Status Date / Time No Known Drug Allergies Allergy Verified 11/19/24 12:07 - Past Medical History Past Medical History: Yes Neurological History: Peripheral Neuropathy ENT History: No Pertinent History Cardiac History: Coronary Artery Disease, High Cholesterol, Hypertension Respiratory History: No Pertinent History Endocrine Medical History: Diabetes Type II Musculoskelatal History: Degenerative Disk Disease, Osteoarthritis GI Medical History: No Pertinent History History: No Pertinent History Pyscho-Social History: Depression Male Reproductive Disorders: Prostate Problems Comment: SX HX: SINGLE STENT PLACEMENT 02/2023, SPINAL CORD STIMULATOR PLACED 2014 BUT HAS STOPPED USING IT "IT WASN'T DOING ANYTHING". BILATERAL FEM/POP BYPASS 10/31/23. - Past Surgical History Past Surgical History: Yes Neuro Surgical History: Other Cardiac History: No Pertinent History Respiratory Surgery: No Pertinent History GI Surgical History: No Pertinent History Genitourinary Surgical Hx: Other Musculskeletal Surgical Hx: No Pertinent History Male Surgical History: No Pertinent History Other Surgical History: had penile implant and has had a spinal stimulator for pain Significant Family History: heart disease, cancer (prostate/colon), diabetes, hypertension, other (AD, ) - Social History Smoking Status: Current every day smoker How long have you smoked: 30 yrs Exposure to second hand smoke: Yes Alcohol: None Drug Use: none - Social Determinants of Health Will the patient participate in the screening: Yes Do you worry about a steady place to live?: No Do you have any problems with any of the following?: No known problems In the past 12 months,have you had to go without utilities?: No Have you or anyone in your house had to go without enough: No Transportation Issues: No Has anyone in your support network made you feel unsafe?: No - Physical Exam Vital Signs: Vital Signs - 24 hr Temp Pulse Resp BP BP Pulse Ox 11/19/24 16:51 94 L 11/19/24 16:42 98 F 90 18 139/78 92 L 11/19/24 16:00 91 H 22 147/78 95 11/19/24 15:30 84 36 H 142/82 94 L 10/03/25 15:01 89 34 H 145/76 92 L 11/19/24 14:30 92 H 32 H 165/102 95 11/19/24 14:20 90 35 H 145/86 93 L 11/19/24 14:19 89 23 95 11/19/24 14:10 88 24 95 11/19/24 14:01 96 H 27 H 95 11/19/24 13:30 94 H 32 H 151/81 95 11/19/24 13:00 99 H 27 H 155/96 94 L 11/19/24 12:40 90 22 96 11/19/24 12:30 94 H 21 157/99 96 11/19/24 12:16 95 11/19/24 12:00 87 26 H 165/90 96 11/19/24 11:55 97.4 F 94 H 28 H 152/88 94 L General Appearance: no apparent distress Neurologic Exam: alert, oriented x 3, cooperative Eye Exam: PERRL/EOMI Ears, Nose, Throat Exam: normal ENT inspection Neck Exam: normal inspection Respiratory Exam: wheezing Cardiovascular Exam: regular rate/rhythm, normal heart sounds Gastrointestinal/Abdomen Exam: soft, normal bowel sounds Rectal Exam: deferred Back Exam: normal inspection Extremity Exam: normal inspection Skin Exam: normal color Results - Labs Lab/Micro Results: Lab Results-Last 24 Hours 11/19/24 11/19/24 11/19/24 Range/Units 12:20 12:20 12:20 WBC 14.2 H (4.23-9.07) x10^3/uL RBC 4.95 (4.63-6.08) x10^6/uL Hgb 13.9 (13.7-17.5) g/dL Hct 42.6 (40.1-51.0) % MCV 86.1 (79.0-92.2) fL MCH 28.1 (25.7-32.2) pg MCHC 32.6 (32.3-36.5) g/dL RDW 14.4 (11.6-14.4) % Plt Count 270 (163-337) x10^3/uL MPV 9.0 L (9.4-12.4) fL Gran % 73.5 H (34.0-67.9) % Immature Gran % (Auto) 0.6 H (0.001-0.429) % Nucleat RBC Rel Count 0.0 (0.00-0.2) % Eos # (Auto) 0.61 H (0.04-0.54) x10^3/uL Immature Gran # (Auto) 0.08 H (0.001-0.031) x10^3u/L Absolute Lymphs (auto) 1.26 L (1.32-3.57) x10^3/uL Absolute Monos (auto) 1.73 H (0.30-0.82) x10^3/uL Absolute Nucleated RBC 0.00 (0.00-0.012) x10^3u/L Lymphocytes % 8.9 L (21.8-53.1) % Monocytes % 12.2 (5.3-12.2) % Eosinophils % 4.3 (0.8-7.0) % Basophils % 0.5 (0.2-1.2) % Absolute Granulocytes 10.41 H (1.78-5.38) x10^3/uL Basophils # 0.07 (0.01-0.08) x10^3/uL Sodium 131 L (135-145) mmol/L Potassium 4.5 (3.5-5.1) mmol/L Chloride 93 L (98-107) mmol/L Carbon Dioxide 26 (22-30) mmol/L Anion Gap 16.8 H (5-15) MEQ/L BUN 11 (9-20) mg/dL Creatinine 0.81 (0.66-1.25) mg/dL Estimated GFR 99.1 ML/MIN Glucose 132 H (74-106) mg/dL Lactic Acid (0.4-2.0) Calcium 9.9 (8.4-10.2) mg/dL Total Bilirubin 0.70 (0.2-1.3) mg/dL AST 29 (17-59) U/L ALT 19 (0-50) U/L Alkaline Phosphatase 85 (38-126) U/L Troponin I < 0.012 (0.000-0.033) ng/mL NT-Pro-B Natriuret Pep 680 (<300) pg/mL Serum Total Protein 8.6 H (6.3-8.2) g/dL Albumin 4.8 (3.5-5.0) g/dL Urine Color (Yellow) Urine Appearance (Clear) Urine pH (4.6-8.0) Ur Specific [place] (1.005-1.030) Urine Protein (Negative) Urine Glucose (UA) (Negative) mg/dL Urine Ketones (Negative) Urine Blood (Negative) Urine Nitrite (Negative) Urine Bilirubin (Negative) Urine Urobilinogen (0.2) mg/dL Ur Leukocyte Esterase (Negative) U Hyaline Cast (Auto) (0-2) /LPF Urine Microscopic RBC (0-5) /HPF Urine Microscopic WBC (0-5) /HPF Ur Epithelial Cells (None Seen) /HPF Urine Bacteria (None Seen) /HPF Urine Culture Reflexed (NO) Slides for Path Review YES 11/19/24 11/19/24 11/19/24 Range/Units 12:28 13:02 16:25 WBC (4.23-9.07) x10^3/uL RBC (4.63-6.08) x10^6/uL Hgb (13.7-17.5) g/dL Hct (40.1-51.0) % MCV (79.0-92.2) fL MCH (25.7-32.2) pg MCHC (32.3-36.5) g/dL RDW (11.6-14.4) % Plt Count (163-337) x10^3/uL MPV (9.4-12.4) fL Gran % (34.0-67.9) % Immature Gran % (Auto) (0.001-0.429) % Nucleat RBC Rel Count (0.00-0.2) % Eos # (Auto) (0.04-0.54) x10^3/uL Immature Gran # (Auto) (0.001-0.031) x10^3u/L Absolute Lymphs (auto) (1.32-3.57) x10^3/uL Absolute Monos (auto) (0.30-0.82) x10^3/uL Absolute Nucleated RBC (0.00-0.012) x10^3u/L Lymphocytes % (21.8-53.1) % Monocytes % (5.3-12.2) % Eosinophils % (0.8-7.0) % Basophils % (0.2-1.2) % Absolute Granulocytes (1.78-5.38) x10^3/uL Basophils # (0.01-0.08) x10^3/uL Sodium (135-145) mmol/L Potassium (3.5-5.1) mmol/L Chloride (98-107) mmol/L Carbon Dioxide (22-30) mmol/L Anion Gap (5-15) MEQ/L BUN (9-20) mg/dL Creatinine (0.66-1.25) mg/dL Estimated GFR ML/MIN Glucose (74-106) mg/dL Lactic Acid 1.8 (0.4-2.0) Calcium (8.4-10.2) mg/dL Total Bilirubin (0.2-1.3) mg/dL AST (17-59) U/L ALT (0-50) U/L Alkaline Phosphatase (38-126) U/L Troponin I < 0.012 (0.000-0.033) ng/mL NT-Pro-B Natriuret Pep (<300) pg/mL Serum Total Protein (6.3-8.2) g/dL Albumin (3.5-5.0) g/dL Urine Color Yellow (Yellow) Urine Appearance Clear (Clear) Urine pH 7.0 (4.6-8.0) Ur Specific [place] 1.010 (1.005-1.030) Urine Protein 30 (Negative) Urine Glucose (UA) Negative (Negative) mg/dL Urine Ketones Negative (Negative) Urine Blood Negative (Negative) Urine Nitrite Negative (Negative) Urine Bilirubin Negative (Negative) Urine Urobilinogen 1.0 A (0.2) mg/dL Ur Leukocyte Esterase Negative (Negative) U Hyaline Cast (Auto) NONE SEEN (0-2) /LPF Urine Microscopic RBC 0-2 (0-5) /HPF Urine Microscopic WBC 0-2 (0-5) /HPF Ur Epithelial Cells None Seen (None Seen) /HPF Urine Bacteria None Seen (None Seen) /HPF Urine Culture Reflexed NO (NO) Slides for Path Review - Radiology Impressions Radiology Exams & Impressions: Radiology Procedures Category Date Time Status CHEST 1 VIEW (PORTABLE) Stat Exams 11/19/24 12:17 Completed - Other Procedures and Tests Respiratory Therapy 11/19/24 16:45 Oxygen Nasal Cannula 2 lpm Respiratory Therapy Consult ONCE Assessment/Plan (1) CHF exacerbation Current Visit: Yes Status: Acute Assessment & Plan: -CXR: borderline cardiomegaly, pulmonary edema, vascular congestion -BNP: 680 -Troponins negative 2 -IV furosemide 40 mg BID -daily weights and strict I/O/elevate HOB -Monitor electrolytes closely. -Repeat echocardiogram to assess EF and function -available Friday -Cardiology consult if poor response -PT follows with Dr. Beasley -EKG RATE (97), Sinus Rhythm, NORMAL AXIS, NORMAL INTERVALS, NORMAL QRS Code(s): I50.9 - HEART FAILURE, UNSPECIFIED (2) Acute hypoxic respiratory failure Current Visit: Yes Status: Acute Assessment & Plan: -2/2 to CHF exac/? pnemonia -Supplemental oxygen titrated for spo2 goal > 89-91% -Currently patient is on RA -Ceftriaxone/Azithromycin to treat possible pneumonia -WBC reviewed at 14.2- add procal -Treat CHF exacerbation with Lasix 40mg BID -NEBs/INH -RT to follow -Solumedrol 40mg BID Code(s): J96.01 - ACUTE RESPIRATORY FAILURE WITH HYPOXIA (3) Pneumonia Current Visit: Yes Status: Acute Assessment & Plan: -See ARF Code(s): J18.9 - PNEUMONIA, UNSPECIFIED ORGANISM (4) Hyponatremia Current Visit: Yes Status: Acute Assessment & Plan: -Mild at 131in the setting of fluid overload -monitor daily -Adjust diuretic regimen as needed Code(s): E87.1 - HYPO-OSMOLALITY AND HYPONATREMIA (5) CAD (coronary artery disease) Current Visit: Yes Status: Acute Assessment & Plan: -continue plavix/statin Code(s): I25.10 - ATHSCL HEART DISEASE OF [place] CORONARY ARTERY W/O ANG PCTRS (6) HTN (hypertension) Current Visit: Yes Status: Acute Assessment & Plan: -Stable continue home regimen Code(s): I10 - ESSENTIAL (PRIMARY) HYPERTENSION (7) HLD (hyperlipidemia) Current Visit: Yes Status: Acute Assessment & Plan: -continue statin Code(s): E78.5 - HYPERLIPIDEMIA, UNSPECIFIED (8) DMII (diabetes mellitus, type 2) Current Visit: Yes Status: Acute Assessment & Plan: -ADA diet -SSI -A1c (9) Depression Current Visit: Yes Status: Acute Assessment & Plan: Continue home meds Code(s): F32.A - DEPRESSION, UNSPECIFIED (10) Smoker Current Visit: Yes Status: Acute Assessment & Plan: -Advised Cessation -Nicotine patch offered for IP and home- patient would like to try OP Code(s): F17.200 - NICOTINE DEPENDENCE, UNSPECIFIED, UNCOMPLICATED (11) History of DVT (deep vein thrombosis) Current Visit: Yes Status: Acute Assessment & Plan: -Diagnosed 6 year ago- left leg -continue home eliquis VTE: Eliquis PPI: Protonix Dispo: 1-2 days Code Status: Full Code Plan of care time spent > 40 mins Code(s): Z86.718 - PERSONAL HISTORY OF OTHER VENOUS THROMBOSIS AND EMBOLISM Telemedicine Encounter - Telemedicine Encounter Telemedicine Encounter: "The entirety of this encounter was performed via Telemedicine" This visit was performed using real-time audio and video connection between my location and thepatients locationwith the assistance of a surrogateat the patients location. Written or verbal consent was obtained from the patient/guardian to perform this visit [facility] technology. Any patient questions regarding the telemedicine interaction were answered.
[2024-11-19] MEDS ORDERED: Zofran 4 MG/2 ML VIAL IV PRN (17:38)
[2024-11-19] MEDS ORDERED: TYLENOL 325 MG PO PRN (17:38)
[2024-11-19] MEDS ORDERED: NON-FORMULARY ITEM (Oxycodone Hcl/Acetaminophen [Oxycodone-Acetaminophn 7.5-325] 1 EACH Ta PO PRN (17:42)
[2024-11-19] MEDS ORDERED: VITAMIN D2 PO SCH (17:45)
[2024-11-19] MEDS: PROTONIX 40 MG IV IV SCH (18:33)
[2024-11-19] MEDS: NICODERM CQ 14 MG TOP SCH (18:34)
[2024-11-19] MEDS: Lasix 40 MG/4 ML IV SCH (18:34)
[2024-11-19] MEDS: DUONEB 0.5-3 MG/3 ml Neb IH SCH (19:00)
[2024-11-19] MEDS: Coreg 3.125 MG PO SCH (21:04)
[2024-11-19] MEDS: ELIQUIS 2.5 MG TABLET PO SCH (21:04)
[2024-11-19] MEDS: solu-MEDROL 40 MG, Sterile H2O 10 ml 1 ML IV SCH (21:04)
[2024-11-19] MEDS: DESYREL 50 MG PO SCH (21:04)
[2024-11-19] MEDS: ZOCOR 20MG PO SCH (21:04)
[2024-11-19] MEDS ORDERED: HUMALOG ONE (21:41)
[2024-11-19] MEDS: HUMALOG SQ PRN (21:45)
[2024-11-19] MEDS ORDERED: NON-FORMULARY ITEM (Rosuvastatin Calcium [Rosuvastatin Calcium] 20 MG Tablet) PO SCH (22:00)
[2024-11-20 05:21] LABS: BASOPHIL % 0.2 % (0.2-1.2); Basophil (Absolute #) 0.02 x10^3/uL (0.01-0.08); Eosinophil (Absolute #) 0 x10^3/uL (0.04-0.54); Hematocrit 40.3 % (40.1-51.0); Hemoglobin 13.5 g/dL (13.7-17.5); IMMATURE GRAN # 0.07 x10^3u/L (0.001-0.031); IMMATURE GRAN % 0.7 % (0.001-0.429); Lymphocyte (Absolute #) 0.64 x10^3/uL (1.32-3.57); Mean Corpuscular Hemoglobin 28.2 pg (25.7-32.2); Mean Corpuscular Hgb Concent. 33.5 g/dL (32.3-36.5); Monocyte (Absolute #) 0.43 x10^3/uL (0.30-0.82); NUCLEATED RBC # 0.00 x10^3u/L (0.00-0.012); NUCLEATED RBC % 0.0 % (0.00-0.2); Platelet Count 260 x10^3/uL (163-337); Red Blood Count 4.79 x10^6/uL (4.63-6.08); White Blood Count 10.0 x10^3/uL (4.23-9.07)
[2024-11-20 05:38] LABS: Calcium 9.8 mg/dL (8.4-10.2); Carbon Dioxide 26.0 mmol/L (22-30); Creatinine 1 0.87 mg/dL (0.66-1.25); EST GLOMERULAR FILTRATION RATE 97.0 ML/MIN; Glucose 316.0 mg/dL (74-106); Potassium 4.4 mmol/L (3.5-5.1); SGOT/AST 27.0 U/L (17-59); SGPT/ALT 24.0 U/L (0-50); Total Protein 8.0 g/dL (6.3-8.2)
[2024-11-20] MEDS: Klor Con PO SCH (09:00)
[2024-11-20] MEDS: Lexapro PO SCH (09:00)
[2024-11-20] MEDS: Flomax 0.4 MG PO SCH (09:00)
[2024-11-20] MEDS: ZITHROMAX IV*** 500 MG in Sodium Chloride 0.9% 250 ML 250 ML IV SCH (09:01)
[2024-11-20] MEDS: Flonase NASAL NS SCH (09:01)
[2024-11-20] MEDS: PROTONIX 40 MG IV IV SCH (09:07)
[2024-11-20] MEDS ORDERED: NON-FORMULARY ITEM (Lamotrigine [Lamictal] 200 MG Tablet) PO SCH (10:00)
[2024-11-20] MEDS ORDERED: PLAVIX Tablet PO SCH (10:00)
[2024-11-20] MEDS: ROCEPHIN 1 GM / 100 ML NaCl 1 GM/100 ML IVPB IV SCH (10:18)
--- NOTE | 2024-11-20 10:18 | PCM.NOTE ---
Date and Time: 11/20/24 1010 Subjective Assessment: is a 64 year old male with a pmhx of congestive heart failure, coronary artery disease status post stent placement, hypertension, hyperlipidemia, DVT (left leg diagnosed 6 year ago),diabetes mellitus, depression, and sciatica, who presented to the emergency department on 11/19/24 with complaints of acute shortness of breath. He reports the dyspnea began suddenly the prior evening and persisted through the night, disrupting his sleep. He also endorses a chronic productive cough for the past month with thick sputum, though he is unable to specify the color. He denies chest pain, palpitations, fevers, or recent sick contacts. He reports adherence to his home regimen of furosemide 20 mg daily. On arrival, he was tachypneic and hypoxic and required 2 L of supplemental oxygen. He received IV furosemide, Solu-Medrol, and a DuoNeb treatment in the ED, after which he was able to maintain oxygen saturations on room air. CXR revealed new borderline cardiomegaly with central vascular congestion and pulmonary edema, most consistent with mild or early CHF decompensation; post- pneumonia changes were not completely excluded. Laboratory evaluation showed leukocytosis with WBC 14.2, hyponatremia (Na 131), hypochloremia (Cl 93), elevated anion gap 16.8, and elevated total protein at 8.6. Pro-BNP was elevated at 680, while serial troponins were negative. On exam, there was no peripheral edema or recent weight gain. The patient is a yxwz-ooup-tok-day smoker with no known chronic lung disease. No recent echocardiogram is available for review. Given his presentation, he is being admitted for acute CHF exacerbation with possible superimposed pneumonia. 11/20/24: Met with patient bedside. Endorses continued dyspnea and cough but much improved. He is requiring 2L of oxygen -baseline RA. Lung sound diminished with exp wheezing noted on exam. No edema. Plan for continued diuresis and IV abx. W alondra off oxygen as appropriate. - Review of Systems Constitutional: No Symptoms Eyes: No Symptoms Ears, Nose, & Throat: No Symptoms Respiratory: Cough, Short Of Breath, Wheezing Cardiac: No Symptoms Abdominal/Gastrointestinal: No Symptoms Genitourinary Symptoms: No Symptoms Musculoskeletal: No Symptoms Skin: No Symptoms Neurological: No Symptoms Psychological: No Symptoms Endocrine: No Symptoms Hematologic/Lymphatic: No Symptoms Immunological/Allergic: No Symptoms Objective Exam General Appearance: no apparent distress Neurologic Exam: alert, oriented x 3, cooperative Skin Exam: normal color Eye Exam: PERRL Ears, Nose, Throat Exam: normal ENT inspection Neck Exam: normal inspection Respiratory Exam: diminished breath sounds, wheezing Cardiovascular Exam: regular rate/rhythm, normal heart sounds Gastrointestinal/Abdomen Exam: soft, normal bowel sounds Extremity Exam: normal inspection Back Exam: normal inspection Male Genitalia Exam: deferred Rectal Exam: deferred Objective Data Vital Signs: Vital Signs - 24 hr Temp Pulse Resp BP BP Pulse Ox 11/20/24 07:35 81 18 94 L 11/20/24 07:30 98.1 F 79 20 144/75 95 11/20/24 04:00 97.2 F 92 H 24 148/71 94 L 11/20/24 01:55 87 16 100 11/19/24 23:10 97.6 F 89 21 144/77 93 L 11/19/24 19:08 97.2 F 98 H 21 136/75 91 L 11/19/24 19:00 108 H 18 91 L 11/19/24 18:53 94 L 11/19/24 18:46 94 L 11/19/24 17:16 98 F 90 18 139/78 92 L 11/19/24 16:42 98 F 90 18 139/78 92 L 11/19/24 16:00 91 H 22 147/78 95 11/19/24 15:30 84 36 H 142/82 94 L 11/19/24 15:01 89 34 H 145/76 92 L 11/19/24 14:30 92 H 32 H 165/102 95 11/19/24 14:20 90 35 H 145/86 93 L 11/19/24 14:19 89 23 95 11/19/24 14:10 88 24 95 11/19/24 14:01 96 H 27 H 95 11/19/24 13:30 94 H 32 H 151/81 95 11/19/24 13:00 99 H 27 H 155/96 94 L 11/19/24 12:40 90 22 96 11/19/24 12:30 94 H 21 157/99 96 11/19/24 12:16 95 11/19/24 12:00 87 26 H 165/90 96 11/19/24 11:55 97.4 F 94 H 28 H 152/88 94 L Pain Assessment - Last Documented Pain Intensity 5 Intake and Output: Intake & Output 11/17/24 11/18/24 11/19/24 11/20/24 11:59 11:59 11:59 11:59 Intake Total 1360 Output Total 2800 Balance -1440 Weight 99.79 kg 96.9 kg Lab Results: Lab Results-Last 24 Hours 11/19/24 11/19/24 11/19/24 Range/Units 12:20 12:20 12:20 WBC 14.2 H (4.23-9.07) x10^3/uL RBC 4.95 (4.63-6.08) x10^6/uL Hgb 13.9 (13.7-17.5) g/dL Hct 42.6 (40.1-51.0) % MCV 86.1 (79.0-92.2) fL MCH 28.1 (25.7-32.2) pg MCHC 32.6 (32.3-36.5) g/dL RDW 14.4 (11.6-14.4) % Plt Count 270 (163-337) x10^3/uL MPV 9.0 L (9.4-12.4) fL Gran % 73.5 H (34.0-67.9) % Immature Gran % (Auto) 0.6 H (0.001-0.429) % Nucleat RBC Rel Count 0.0 (0.00-0.2) % Eos # (Auto) 0.61 H (0.04-0.54) x10^3/uL Immature Gran # (Auto) 0.08 H (0.001-0.031) x10^3u/L Absolute Lymphs (auto) 1.26 L (1.32-3.57) x10^3/uL Absolute Monos (auto) 1.73 H (0.30-0.82) x10^3/uL Absolute Nucleated RBC 0.00 (0.00-0.012) x10^3u/L Lymphocytes % 8.9 L (21.8-53.1) % Monocytes % 12.2 (5.3-12.2) % Eosinophils % 4.3 (0.8-7.0) % Basophils % 0.5 (0.2-1.2) % Absolute Granulocytes 10.41 H (1.78-5.38) x10^3/uL Basophils # 0.07 (0.01-0.08) x10^3/uL Sodium 131 L (135-145) mmol/L Potassium 4.5 (3.5-5.1) mmol/L Chloride 93 L (98-107) mmol/L Carbon Dioxide 26 (22-30) mmol/L Anion Gap 16.8 H (5-15) MEQ/L BUN 11 (9-20) mg/dL Creatinine 0.81 (0.66-1.25) mg/dL Estimated GFR 99.1 ML/MIN Glucose 132 H (74-106) mg/dL POC Glucometer (74 to 106) mg/dL Lactic Acid (0.4-2.0) Calcium 9.9 (8.4-10.2) mg/dL Total Bilirubin 0.70 (0.2-1.3) mg/dL AST 29 (17-59) U/L ALT 19 (0-50) U/L Alkaline Phosphatase 85 (38-126) U/L Troponin I < 0.012 (0.000-0.033) ng/mL NT-Pro-B Natriuret Pep 680 (<300) pg/mL Serum Total Protein 8.6 H (6.3-8.2) g/dL Albumin 4.8 (3.5-5.0) g/dL Procalcitonin (0.030-0.080) ng/mL Urine Color (Yellow) Urine Appearance (Clear) Urine pH (4.6-8.0) Ur Specific [place] (1.005-1.030) Urine Protein (Negative) Urine Glucose (UA) (Negative) mg/dL Urine Ketones (Negative) Urine Blood (Negative) Urine Nitrite (Negative) Urine Bilirubin (Negative) Urine Urobilinogen (0.2) mg/dL Ur Leukocyte Esterase (Negative) U Hyaline Cast (Auto) (0-2) /LPF Urine Microscopic RBC (0-5) /HPF Urine Microscopic WBC (0-5) /HPF Ur Epithelial Cells (None Seen) /HPF Urine Bacteria (None Seen) /HPF Urine Culture Reflexed (NO) Slides for Path Review YES 11/19/24 11/19/24 11/19/24 Range/Units 12:28 13:02 16:25 WBC (4.23-9.07) x10^3/uL RBC (4.63-6.08) x10^6/uL Hgb (13.7-17.5) g/dL Hct (40.1-51.0) % MCV (79.0-92.2) fL MCH (25.7-32.2) pg MCHC (32.3-36.5) g/dL RDW (11.6-14.4) % Plt Count (163-337) x10^3/uL MPV (9.4-12.4) fL Gran % (34.0-67.9) % Immature Gran % (Auto) (0.001-0.429) % Nucleat RBC Rel Count (0.00-0.2) % Eos # (Auto) (0.04-0.54) x10^3/uL Immature Gran # (Auto) (0.001-0.031) x10^3u/L Absolute Lymphs (auto) (1.32-3.57) x10^3/uL Absolute Monos (auto) (0.30-0.82) x10^3/uL Absolute Nucleated RBC (0.00-0.012) x10^3u/L Lymphocytes % (21.8-53.1) % Monocytes % (5.3-12.2) % Eosinophils % (0.8-7.0) % Basophils % (0.2-1.2) % Absolute Granulocytes (1.78-5.38) x10^3/uL Basophils # (0.01-0.08) x10^3/uL Sodium (135-145) mmol/L Potassium (3.5-5.1) mmol/L Chloride (98-107) mmol/L Carbon Dioxide (22-30) mmol/L Anion Gap (5-15) MEQ/L BUN (9-20) mg/dL Creatinine (0.66-1.25) mg/dL Estimated GFR ML/MIN Glucose (74-106) mg/dL POC Glucometer (74 to 106) mg/dL Lactic Acid 1.8 (0.4-2.0) Calcium (8.4-10.2) mg/dL Total Bilirubin (0.2-1.3) mg/dL AST (17-59) U/L ALT (0-50) U/L Alkaline Phosphatase (38-126) U/L Troponin I < 0.012 (0.000-0.033) ng/mL NT-Pro-B Natriuret Pep (<300) pg/mL Serum Total Protein (6.3-8.2) g/dL Albumin (3.5-5.0) g/dL Procalcitonin (0.030-0.080) ng/mL Urine Color Yellow (Yellow) Urine Appearance Clear (Clear) Urine pH 7.0 (4.6-8.0) Ur Specific [place] 1.010 (1.005-1.030) Urine Protein 30 (Negative) Urine Glucose (UA) Negative (Negative) mg/dL Urine Ketones Negative (Negative) Urine Blood Negative (Negative) Urine Nitrite Negative (Negative) Urine Bilirubin Negative (Negative) Urine Urobilinogen 1.0 A (0.2) mg/dL Ur Leukocyte Esterase Negative (Negative) U Hyaline Cast (Auto) NONE SEEN (0-2) /LPF Urine Microscopic RBC 0-2 (0-5) /HPF Urine Microscopic WBC 0-2 (0-5) /HPF Ur Epithelial Cells None Seen (None Seen) /HPF Urine Bacteria None Seen (None Seen) /HPF Urine Culture Reflexed NO (NO) Slides for Path Review 11/19/24 11/19/24 11/19/24 Range/Units 20:25 20:25 21:36 WBC (4.23-9.07) x10^3/uL RBC (4.63-6.08) x10^6/uL Hgb (13.7-17.5) g/dL Hct (40.1-51.0) % MCV (79.0-92.2) fL MCH (25.7-32.2) pg MCHC (32.3-36.5) g/dL RDW (11.6-14.4) % Plt Count (163-337) x10^3/uL MPV (9.4-12.4) fL Gran % (34.0-67.9) % Immature Gran % (Auto) (0.001-0.429) % Nucleat RBC Rel Count (0.00-0.2) % Eos # (Auto) (0.04-0.54) x10^3/uL Immature Gran # (Auto) (0.001-0.031) x10^3u/L Absolute Lymphs (auto) (1.32-3.57) x10^3/uL Absolute Monos (auto) (0.30-0.82) x10^3/uL Absolute Nucleated RBC (0.00-0.012) x10^3u/L Lymphocytes % (21.8-53.1) % Monocytes % (5.3-12.2) % Eosinophils % (0.8-7.0) % Basophils % (0.2-1.2) % Absolute Granulocytes (1.78-5.38) x10^3/uL Basophils # (0.01-0.08) x10^3/uL Sodium (135-145) mmol/L Potassium (3.5-5.1) mmol/L Chloride (98-107) mmol/L Carbon Dioxide (22-30) mmol/L Anion Gap (5-15) MEQ/L BUN (9-20) mg/dL Creatinine (0.66-1.25) mg/dL Estimated GFR ML/MIN Glucose (74-106) mg/dL POC Glucometer 450 H (74 to 106) mg/dL Lactic Acid (0.4-2.0) Calcium (8.4-10.2) mg/dL Total Bilirubin (0.2-1.3) mg/dL AST (17-59) U/L ALT (0-50) U/L Alkaline Phosphatase (38-126) U/L Troponin I < 0.012 (0.000-0.033) ng/mL NT-Pro-B Natriuret Pep (<300) pg/mL Serum Total Protein (6.3-8.2) g/dL Albumin (3.5-5.0) g/dL Procalcitonin 0.054 (0.030-0.080) ng/mL Urine Color (Yellow) Urine Appearance (Clear) Urine pH (4.6-8.0) Ur Specific [place] (1.005-1.030) Urine Protein (Negative) Urine Glucose (UA) (Negative) mg/dL Urine Ketones (Negative) Urine Blood (Negative) Urine Nitrite (Negative) Urine Bilirubin (Negative) Urine Urobilinogen (0.2) mg/dL Ur Leukocyte Esterase (Negative) U Hyaline Cast (Auto) (0-2) /LPF Urine Microscopic RBC (0-5) /HPF Urine Microscopic WBC (0-5) /HPF Ur Epithelial Cells (None Seen) /HPF Urine Bacteria (None Seen) /HPF Urine Culture Reflexed (NO) Slides for Path Review 11/20/24 11/20/24 11/20/24 Range/Units 05:15 05:15 07:02 WBC 10.0 H (4.23-9.07) x10^3/uL RBC 4.79 (4.63-6.08) x10^6/uL Hgb 13.5 L (13.7-17.5) g/dL Hct 40.3 (40.1-51.0) % MCV 84.1 (79.0-92.2) fL MCH 28.2 (25.7-32.2) pg MCHC 33.5 (32.3-36.5) g/dL RDW 14.4 (11.6-14.4) % Plt Count 260 (163-337) x10^3/uL MPV 8.9 L (9.4-12.4) fL Gran % 88.4 H (34.0-67.9) % Immature Gran % (Auto) 0.7 H (0.001-0.429) % Nucleat RBC Rel Count 0.0 (0.00-0.2) % Eos # (Auto) 0 L (0.04-0.54) x10^3/uL Immature Gran # (Auto) 0.07 H (0.001-0.031) x10^3u/L Absolute Lymphs (auto) 0.64 L (1.32-3.57) x10^3/uL Absolute Monos (auto) 0.43 (0.30-0.82) x10^3/uL Absolute Nucleated RBC 0.00 (0.00-0.012) x10^3u/L Lymphocytes % 6.4 L (21.8-53.1) % Monocytes % 4.3 L (5.3-12.2) % Eosinophils % 0.0 L (0.8-7.0) % Basophils % 0.2 (0.2-1.2) % Absolute Granulocytes 8.86 H (1.78-5.38) x10^3/uL Basophils # 0.02 (0.01-0.08) x10^3/uL Sodium 131 L (135-145) mmol/L Potassium 4.4 (3.5-5.1) mmol/L Chloride 94 L (98-107) mmol/L Carbon Dioxide 26 (22-30) mmol/L Anion Gap 16.1 H (5-15) MEQ/L BUN 17 (9-20) mg/dL Creatinine 0.87 (0.66-1.25) mg/dL Estimated GFR 97.0 ML/MIN Glucose 316 H (74-106) mg/dL POC Glucometer 265 H (74 to 106) mg/dL Lactic Acid (0.4-2.0) Calcium 9.8 (8.4-10.2) mg/dL Total Bilirubin 0.50 (0.2-1.3) mg/dL AST 27 (17-59) U/L ALT 24 (0-50) U/L Alkaline Phosphatase 79 (38-126) U/L Troponin I (0.000-0.033) ng/mL NT-Pro-B Natriuret Pep (<300) pg/mL Serum Total Protein 8.0 (6.3-8.2) g/dL Albumin 4.6 (3.5-5.0) g/dL Procalcitonin (0.030-0.080) ng/mL Urine Color (Yellow) Urine Appearance (Clear) Urine pH (4.6-8.0) Ur Specific [place] (1.005-1.030) Urine Protein (Negative) Urine Glucose (UA) (Negative) mg/dL Urine Ketones (Negative) Urine Blood (Negative) Urine Nitrite (Negative) Urine Bilirubin (Negative) Urine Urobilinogen (0.2) mg/dL Ur Leukocyte Esterase (Negative) U Hyaline Cast (Auto) (0-2) /LPF Urine Microscopic RBC (0-5) /HPF Urine Microscopic WBC (0-5) /HPF Ur Epithelial Cells (None Seen) /HPF Urine Bacteria (None Seen) /HPF Urine Culture Reflexed (NO) Slides for Path Review Radiology Exams: Radiology Procedures Category Date Time Status CHEST 1 VIEW (PORTABLE) Stat Exams 11/19/24 12:17 Completed ECHO W/2D AND DOPPLER [US] Routine Exams 11/22/24 05:00 Ordered Medications: Medications Generic Name Dose Route Start Last Admin Trade Name Freq PRN Reason Stop Dose Admin Acetaminophen 650 mg 11/19/24 17:38 Acetaminophen 325 Mg Tablet PO 12/19/24 17:37 Q4H PRN PRN PAIN, FEVER, HEADACHE Albuterol/Ipratropium 3 ml 11/19/24 19:00 11/20/24 07:32 Ipratropium/Albuterol Sulfate 3 Ml Ampul.Neb IH 12/19/24 18:59 3 ml Q6HRT LAURA Administration Apixaban 5 mg 11/19/24 22:00 11/20/24 09:00 Apixaban 2.5 Mg Tablet PO 12/19/24 21:59 5 mg BID LAURA Administration Carvedilol 3.125 mg 11/19/24 22:00 11/20/24 09:00 Carvedilol 3.125 Mg Tablet PO 12/19/24 21:59 3.125 mg BID LAURA Administration Methylprednisolone Sodium 0 mg 11/19/24 22:00 11/20/24 09:15 Succinate 40 mg/ Sterile Water IV 12/19/24 21:59 40 mg 1 ml Q12HT LAURA Administration Ergocalciferol 50,000 unit 11/19/24 17:45 Ergocalciferol (Vitamin D2) 50,000 Unit Capsule PO 12/19/24 17:44 WEEKLY LAURA Escitalopram Oxalate 10 mg 11/20/24 10:00 11/20/24 09:00 Escitalopram Oxalate 10 Mg Tablet PO 12/20/24 09:59 10 mg DAILY LAURA Administration Fluticasone Propionate 0 gm 11/20/24 10:00 11/20/24 09:01 Fluticasone Propionate 16 Gm Bottle Nasal [place] NS 12/20/24 09:59 16 gm BID LAURA Administration Furosemide 40 mg 11/19/24 17:45 11/20/24 06:25 Furosemide 40 Mg/4 Ml Vial IV 12/19/24 17:44 40 mg Q12H LAURA Administration Ceftriaxone Sodium 1 gm in 100 mls @ 200 mls/hr 11/20/24 10:00 Rocephin 1 Gm / 100 Ml Nacl IV 12/20/24 09:59 Q24H10 LAURA Azithromycin 500 mg/ Sodium 250 mls @ 250 mls/hr 11/20/24 10:00 11/20/24 09:01 Chloride IV 12/20/24 09:59 250 mls/hr Q24H10 LAURA Administration Insulin Human Lispro 0 unit 11/20/24 05:05 Insulin Lispro 1 Unit SQ 12/20/24 05:04 UD PRN HYPERGLYCEMIA Nicotine 14 mg 11/19/24 17:45 11/19/24 18:34 Nicotine 14 Mg/Patch Patch TOP 12/19/24 17:44 14 mg Q24H LAURA Administration Ondansetron HCl 4 mg 11/19/24 17:38 Ondansetron Hcl 4 Mg/2 Ml Vial IV 12/19/24 17:37 Q6H PRN PRN NAUSEA/VOMITING Oxycodone/Acetaminophen 1 tab 11/19/24 19:37 Oxycodone Hcl/Apap 5 Mg/325 Mg Tablet PO 11/24/24 19:36 TID PRN PRN PAIN Pantoprazole Sodium 40 mg 11/20/24 10:00 11/20/24 09:07 Pantoprazole 40 Mg Vial IV 12/19/24 17:44 40 mg Q24H10 LAURA Administration Potassium Chloride 10 meq 11/20/24 10:00 11/20/24 09:00 Potassium Chloride Tab 10 Meq Tab PO 12/20/24 09:59 10 meq QAM LAURA Administration Simvastatin 40 mg 11/19/24 22:00 11/19/24 21:04 Simvastatin 20 Mg Tablet PO 12/19/24 21:59 40 mg HS LAURA Administration Tamsulosin HCl 0.8 mg 11/20/24 10:00 11/20/24 09:00 Tamsulosin Hcl 0.4 Mg Cap PO 12/20/24 09:59 0.8 mg DAILY LAURA Administration Trazodone HCl 150 mg 11/19/24 22:00 11/19/24 21:04 Trazodone Hcl 50 Mg Tablet PO 12/19/24 21:59 150 mg QHS LAURA Administration Discontinued Medications Generic Name Dose Route Start Last Admin Trade Name Freq PRN Reason Stop Dose Admin Albuterol/Ipratropium 3 ml 11/19/24 12:21 11/19/24 12:35 Ipratropium/Albuterol Sulfate 3 Ml Ampul.Neb IH 11/19/24 12:22 3 ml STAT ONE Administration Albuterol/Ipratropium Confirm 11/19/24 12:28 Ipratropium/Albuterol Sulfate 3 Ml Ampul.Neb Administered 11/19/24 12:29 Dose 3 ml IH .STK-MED ONE Clopidogrel Bisulfate 75 mg 11/20/24 10:00 Clopidogrel Bisulfate 75 Mg Tablet PO 12/20/24 09:59 DAILY LAURA Methylprednisolone Sodium 0 mg 11/19/24 15:30 11/19/24 15:43 Succinate 125 mg/ Sterile IV 11/19/24 15:31 125 mg Water 2 ml STAT ONE Administration Furosemide 40 mg 11/19/24 13:11 11/19/24 13:42 Furosemide 40 Mg/4 Ml Vial IV 11/19/24 13:12 40 mg STAT ONE Administration Furosemide Confirm 11/19/24 13:41 Furosemide 40 Mg/4 Ml Vial Administered 11/19/24 13:42 Dose 40 mg .ROUTE .STK-MED ONE Insulin Human Lispro 0 unit 11/19/24 17:38 11/19/24 21:45 Insulin Lispro 1 Unit SQ 12/19/24 17:37 12 unit UD PRN Administration HYPERGLYCEMIA Insulin Human Lispro Confirm 11/19/24 21:41 Insulin Lispro 1 Unit Administered 11/19/24 21:42 Dose 12 unit .ROUTE .STK-MED ONE Methylprednisolone Sodium Succinate Confirm 11/19/24 15:41 Methylprednis Sod Succ 125 Mg/2 Ml Vial Administered 11/19/24 15:42 Dose 125 mg .ROUTE .STK-MED ONE Methylprednisolone Sodium Succinate Confirm 11/19/24 21:02 Methylprednisolone Sod Suc 40m 40 Mg/Ml Vial Administered 11/19/24 21:03 Dose 40 mg .ROUTE .STK-MED ONE Non-Formulary Medication 200 mg 11/20/24 10:00 Lamotrigine [Lamictal] PO 12/20/24 09:59 DAILY LAURA Non-Formulary Medication 1 tab 11/19/24 17:42 Oxycodone Hcl/Acetaminophen [Oxycodone-Acetaminophn 7.5-325] PO TID PRN PAIN Non-Formulary Medication 20 mg 11/19/24 22:00 Rosuvastatin Calcium [Rosuvastatin Calcium] PO 12/19/24 21:59 HS LAURA Pantoprazole Sodium 40 mg 11/19/24 17:45 11/19/24 18:33 Pantoprazole 40 Mg Vial IV 12/19/24 17:44 40 mg Q24H LAURA Administration Sterile Water Confirm 11/19/24 15:41 Water For Injection,Sterile 10 Ml Vial Administered 11/19/24 15:42 Dose 10 ml IJ .STK-MED ONE Sterile Water Confirm 11/19/24 21:03 Water For Injection,Sterile 10 Ml Vial Administered 11/19/24 21:04 Dose 10 ml IJ .STK-MED ONE Assessment/Plan (1) CHF exacerbation Current Visit: Yes Status: Acute Assessment & Plan: -CXR: borderline cardiomegaly, pulmonary edema, vascular congestion -BNP: 680 -Troponins negative 2 -IV furosemide 40 mg BID -daily weights and strict I/O/elevate HOB -Monitor electrolytes closely. -Repeat echocardiogram to assess EF and function -available Friday -Cardiology consult if poor response -PT follows with Dr. Beasley -EKG RATE (97), Sinus Rhythm, NORMAL AXIS, NORMAL INTERVALS, NORMAL QRS 11/20: -Supplemental oxygen for goal spo2 > 91% -Continue diuresis with 40mg bid -(-)1.4L balance/6.3 lb weight loss -trops - x 3 -CMP/CBC reviewed Code(s): I50.9 - HEART FAILURE, UNSPECIFIED (2) Acute hypoxic respiratory failure Current Visit: Yes Status: Acute Assessment & Plan: -2/2 to CHF exac/? pnemonia -Supplemental oxygen titrated for spo2 goal > 89-91% -Currently patient is on RA -Ceftriaxone/Azithromycin to treat possible pneumonia -WBC reviewed at 14.2- add procal -Treat CHF exacerbation with Lasix 40mg BID -NEBs/INH -RT to follow -Solumedrol 40mg BID 11/20: -Continue ceftriaxone/azithromycin -Solumedrol 40mg bid - continue -Procal WNL -WBC reviewed at 10-improved -Currently on 2L oxygen with spo2 at 94%- wean as appropriate Code(s): J96.01 - ACUTE RESPIRATORY FAILURE WITH HYPOXIA (3) Pneumonia Current Visit: Yes Status: Acute Assessment & Plan: -See ARF Code(s): J18.9 - PNEUMONIA, UNSPECIFIED ORGANISM (4) Hyponatremia Current Visit: Yes Status: Acute Assessment & Plan: -Mild at 131in the setting of fluid overload -monitor daily -Adjust diuretic regimen as needed Code(s): E87.1 - HYPO-OSMOLALITY AND HYPONATREMIA (5) CAD (coronary artery disease) Current Visit: Yes Status: Acute Assessment & Plan: -continue plavix/statin -Patient states he is on Plavix 11/20 - will resume Code(s): I25.10 - ATHSCL HEART DISEASE OF [place] CORONARY ARTERY W/O ANG PCTRS (6) HTN (hypertension) Current Visit: Yes Status: Acute Assessment & Plan: -Stable continue home regimen Code(s): I10 - ESSENTIAL (PRIMARY) HYPERTENSION (7) HLD (hyperlipidemia) Current Visit: Yes Status: Acute Assessment & Plan: -continue statin Code(s): E78.5 - HYPERLIPIDEMIA, UNSPECIFIED (8) DMII (diabetes mellitus, type 2) Current Visit: Yes Status: Acute Assessment & Plan: -ADA diet -SSI- increased to high dose with steroids -A1c (9) Depression Current Visit: Yes Status: Acute Assessment & Plan: Continue home meds Code(s): F32.A - DEPRESSION, UNSPECIFIED (10) Smoker Current Visit: Yes Status: Acute Assessment & Plan: -Advised Cessation -Nicotine patch offered for IP and home- patient would like to try OP Code(s): F17.200 - NICOTINE DEPENDENCE, UNSPECIFIED, UNCOMPLICATED (11) History of DVT (deep vein thrombosis) Current Visit: Yes Status: Acute Assessment & Plan: -Diagnosed 6 year ago- left leg -continue home eliquis VTE: Eliquis PPI: Protonix Dispo: 1-2 days Code Status: Full Code Plan of care time spent > 40 mins Code(s): Z86.718 - PERSONAL HISTORY OF OTHER VENOUS THROMBOSIS AND EMBOLISM Code(s): I50.9 - HEART FAILURE, UNSPECIFIED (2) Acute hypoxic respiratory failure Current Visit: Yes Status: Acute Code(s): J96.01 - ACUTE RESPIRATORY FAILURE WITH HYPOXIA (3) Pneumonia Current Visit: Yes Status: Acute Code(s): J18.9 - PNEUMONIA, UNSPECIFIED ORGANISM (4) Hyponatremia Current Visit: Yes Status: Acute Code(s): E87.1 - HYPO-OSMOLALITY AND HYPONATREMIA (5) CAD (coronary artery disease) Current Visit: Yes Status: Acute Code(s): I25.10 - ATHSCL HEART DISEASE OF [place] CORONARY ARTERY W/O ANG PCTRS (6) HTN (hypertension) Current Visit: Yes Status: Acute Code(s): I10 - ESSENTIAL (PRIMARY) HYPERTENSION (7) HLD (hyperlipidemia) Current Visit: Yes Status: Acute Code(s): E78.5 - HYPERLIPIDEMIA, UNSPECIFIED (8) DMII (diabetes mellitus, type 2) Current Visit: Yes Status: Acute (9) Depression Current Visit: Yes Status: Acute Code(s): F32.A - DEPRESSION, UNSPECIFIED (10) Smoker Current Visit: Yes Status: Acute Code(s): F17.200 - NICOTINE DEPENDENCE, UNSPECIFIED, UNCOMPLICATED (11) History of DVT (deep vein thrombosis) Current Visit: Yes Status: Acute Code(s): Z86.718 - PERSONAL HISTORY OF OTHER VENOUS THROMBOSIS AND EMBOLISM
[2024-11-20] MEDS: PLAVIX Tablet PO SCH (10:52)
[2024-11-20] MEDS: HUMALOG SQ PRN (11:32)
[2024-11-20] MEDS: PERCOCET TABLET 5/325MG PO PRN (21:13)
--- NOTE | 2024-11-21 05:08 | PCM.NOTE ---
Date and Time: 11/21/24 0508 Subjective Assessment: is a 64 year old male with a pmhx of congestive heart failure, coronary artery disease status post stent placement, hypertension, hyperlipidemia, DVT (left leg diagnosed 6 year ago),diabetes mellitus, depression, and sciatica, who presented to the emergency department on 11/19/24 with complaints of acute shortness of breath. He reports the dyspnea began suddenly the prior evening and persisted through the night, disrupting his sleep. He also endorses a chronic productive cough for the past month with thick sputum, though he is unable to specify the color. He denies chest pain, palpitations, fevers, or recent sick contacts. He reports adherence to his home regimen of furosemide 20 mg daily. On arrival, he was tachypneic and hypoxic and required 2 L of supplemental oxygen. He received IV furosemide, Solu-Medrol, and a DuoNeb treatment in the ED, after which he was able to maintain oxygen saturations on room air. CXR revealed new borderline cardiomegaly with central vascular congestion and pulmonary edema, most consistent with mild or early CHF decompensation; post- pneumonia changes were not completely excluded. Laboratory evaluation showed leukocytosis with WBC 14.2, hyponatremia (Na 131), hypochloremia (Cl 93), elevated anion gap 16.8, and elevated total protein at 8.6. Pro-BNP was elevated at 680, while serial troponins were negative. On exam, there was no peripheral edema or recent weight gain. The patient is a yssl-[id number]-oar-day smoker with no known chronic lung disease. No recent echocardiogram is available for review. Given his presentation, he is being admitted for acute CHF exacerbation with possible superimposed pneumonia. 11/20/24: Met with patient bedside. Endorses continued dyspnea and cough but much improved. He is requiring 2L of oxygen -baseline RA. Lung sound diminished with exp wheezing noted on exam. No edema. Plan for continued diuresis and IV abx. W alondra off oxygen as appropriate. 11/21: No acute events reported overnight. Patient remains on 2 L nasal cannula after unsuccessful trial of room air, during which he experienced desaturation. Pulmonary exam reveals coarse crackles in the left lower lobe and scattered expiratory wheezes. Echocardiogram is scheduled for tomorrow to further evaluate cardiac function. Current plan is to continue intravenous antibiotics, transition to oral prednisone today, and monitor for improvement. If clinical response is favorable, discharge may be possible tomorrow. - Review of Systems Constitutional: No Symptoms Eyes: No Symptoms Ears, Nose, & Throat: No Symptoms Respiratory: Cough, Short Of Breath, Wheezing Cardiac: No Symptoms Abdominal/Gastrointestinal: No Symptoms Genitourinary Symptoms: No Symptoms Musculoskeletal: No Symptoms Skin: No Symptoms Neurological: No Symptoms Psychological: No Symptoms Endocrine: No Symptoms Hematologic/Lymphatic: No Symptoms Immunological/Allergic: No Symptoms Objective Exam General Appearance: no apparent distress Neurologic Exam: alert, oriented x 3, cooperative Skin Exam: normal color Eye Exam: PERRL Ears, Nose, Throat Exam: normal ENT inspection Neck Exam: normal inspection Respiratory Exam: crackles/rales, wheezing Cardiovascular Exam: regular rate/rhythm, normal heart sounds Gastrointestinal/Abdomen Exam: soft, normal bowel sounds Extremity Exam: normal inspection Back Exam: normal inspection Male Genitalia Exam: deferred Rectal Exam: deferred Objective Data Vital Signs: Vital Signs - 24 hr Temp Pulse Resp BP Pulse Ox 11/21/24 04:00 97.8 F 83 18 111/55 97 11/21/24 01:10 85 18 95 11/20/24 22:53 98.6 F 84 19 118/64 96 11/20/24 20:00 97.5 F 92 H 20 141/68 94 L 11/20/24 18:57 96 H 18 93 L 11/20/24 16:00 97.8 F 94 H 22 134/73 97 11/20/24 13:49 84 18 96 11/20/24 11:59 97.9 F 87 20 131/59 96 11/20/24 07:35 81 18 94 L 11/20/24 07:30 98.1 F 79 20 144/75 95 Pain Assessment - Last Documented Pain Intensity 0 [facility] Intake and Output: Intake & Output 11/18/24 11/19/24 11/20/24 11/21/24 11:59 11:59 11:59 11:59 Intake Total 1360 1680 Output Total 2800 1550 Balance -1440 130 Weight 99.79 kg 96.9 kg Lab Results: Lab Results-Last 24 Hours 11/20/24 11/20/24 11/20/24 Range/Units 05:15 05:15 07:02 WBC 10.0 H (4.23-9.07) x10^3/uL RBC 4.79 (4.63-6.08) x10^6/uL Hgb 13.5 L (13.7-17.5) g/dL Hct 40.3 (40.1-51.0) % MCV 84.1 (79.0-92.2) fL MCH 28.2 (25.7-32.2) pg MCHC 33.5 (32.3-36.5) g/dL RDW 14.4 (11.6-14.4) % Plt Count 260 (163-337) x10^3/uL MPV 8.9 L (9.4-12.4) fL Gran % 88.4 H (34.0-67.9) % Immature Gran % (Auto) 0.7 H (0.001-0.429) % Nucleat RBC Rel Count 0.0 (0.00-0.2) % Eos # (Auto) 0 L (0.04-0.54) x10^3/uL Immature Gran # (Auto) 0.07 H (0.001-0.031) x10^3u/L Absolute Lymphs (auto) 0.64 L (1.32-3.57) x10^3/uL Absolute Monos (auto) 0.43 (0.30-0.82) x10^3/uL Absolute Nucleated RBC 0.00 (0.00-0.012) x10^3u/L Lymphocytes % 6.4 L (21.8-53.1) % Monocytes % 4.3 L (5.3-12.2) % Eosinophils % 0.0 L (0.8-7.0) % Basophils % 0.2 (0.2-1.2) % Absolute Granulocytes 8.86 H (1.78-5.38) x10^3/uL Basophils # 0.02 (0.01-0.08) x10^3/uL Sodium 131 L (135-145) mmol/L Potassium 4.4 (3.5-5.1) mmol/L Chloride 94 L (98-107) mmol/L Carbon Dioxide 26 (22-30) mmol/L Anion Gap 16.1 H (5-15) MEQ/L BUN 17 (9-20) mg/dL Creatinine 0.87 (0.66-1.25) mg/dL Estimated GFR 97.0 ML/MIN Glucose 316 H (74-106) mg/dL POC Glucometer 265 H (74 to 106) mg/dL Calcium 9.8 (8.4-10.2) mg/dL Total Bilirubin 0.50 (0.2-1.3) mg/dL AST 27 (17-59) U/L ALT 24 (0-50) U/L Alkaline Phosphatase 79 (38-126) U/L Serum Total Protein 8.0 (6.3-8.2) g/dL Albumin 4.6 (3.5-5.0) g/dL 11/20/24 11/20/24 11/20/24 Range/Units 11:16 16:17 18:41 WBC (4.23-9.07) x10^3/uL RBC (4.63-6.08) x10^6/uL Hgb (13.7-17.5) g/dL Hct (40.1-51.0) % MCV (79.0-92.2) fL MCH (25.7-32.2) pg MCHC (32.3-36.5) g/dL RDW (11.6-14.4) % Plt Count (163-337) x10^3/uL MPV (9.4-12.4) fL Gran % (34.0-67.9) % Immature Gran % (Auto) (0.001-0.429) % Nucleat RBC Rel Count (0.00-0.2) % Eos # (Auto) (0.04-0.54) x10^3/uL Immature Gran # (Auto) (0.001-0.031) x10^3u/L Absolute Lymphs (auto) (1.32-3.57) x10^3/uL Absolute Monos (auto) (0.30-0.82) x10^3/uL Absolute Nucleated RBC (0.00-0.012) x10^3u/L Lymphocytes % (21.8-53.1) % Monocytes % (5.3-12.2) % Eosinophils % (0.8-7.0) % Basophils % (0.2-1.2) % Absolute Granulocytes (1.78-5.38) x10^3/uL Basophils # (0.01-0.08) x10^3/uL Sodium (135-145) mmol/L Potassium (3.5-5.1) mmol/L Chloride (98-107) mmol/L Carbon Dioxide (22-30) mmol/L Anion Gap (5-15) MEQ/L BUN (9-20) mg/dL Creatinine (0.66-1.25) mg/dL Estimated GFR ML/MIN Glucose (74-106) mg/dL POC Glucometer 329 H 423 H 407 H (74 to 106) mg/dL Calcium (8.4-10.2) mg/dL Total Bilirubin (0.2-1.3) mg/dL AST (17-59) U/L ALT (0-50) U/L Alkaline Phosphatase (38-126) U/L Serum Total Protein (6.3-8.2) g/dL Albumin (3.5-5.0) g/dL 11/20/24 Range/Units 21:07 WBC (4.23-9.07) x10^3/uL RBC (4.63-6.08) x10^6/uL Hgb (13.7-17.5) g/dL Hct (40.1-51.0) % MCV (79.0-92.2) fL MCH (25.7-32.2) pg MCHC (32.3-36.5) g/dL RDW (11.6-14.4) % Plt Count (163-337) x10^3/uL MPV (9.4-12.4) fL Gran % (34.0-67.9) % Immature Gran % (Auto) (0.001-0.429) % Nucleat RBC Rel Count (0.00-0.2) % Eos # (Auto) (0.04-0.54) x10^3/uL Immature Gran # (Auto) (0.001-0.031) x10^3u/L Absolute Lymphs (auto) (1.32-3.57) x10^3/uL Absolute Monos (auto) (0.30-0.82) x10^3/uL Absolute Nucleated RBC (0.00-0.012) x10^3u/L Lymphocytes % (21.8-53.1) % Monocytes % (5.3-12.2) % Eosinophils % (0.8-7.0) % Basophils % (0.2-1.2) % Absolute Granulocytes (1.78-5.38) x10^3/uL Basophils # (0.01-0.08) x10^3/uL Sodium (135-145) mmol/L Potassium (3.5-5.1) mmol/L Chloride (98-107) mmol/L Carbon Dioxide (22-30) mmol/L Anion Gap (5-15) MEQ/L BUN (9-20) mg/dL Creatinine (0.66-1.25) mg/dL Estimated GFR ML/MIN Glucose (74-106) mg/dL POC Glucometer 364 H (74 to 106) mg/dL Calcium (8.4-10.2) mg/dL Total Bilirubin (0.2-1.3) mg/dL AST (17-59) U/L ALT (0-50) U/L Alkaline Phosphatase (38-126) U/L Serum Total Protein (6.3-8.2) g/dL Albumin (3.5-5.0) g/dL Radiology Exams: Radiology Procedures Category Date Time Status CHEST 1 VIEW (PORTABLE) Stat Exams 11/19/24 12:17 Completed ECHO W/2D AND DOPPLER [US] Routine Exams 11/22/24 05:00 Ordered Medications: Medications Generic Name Dose Route Start Last Admin Trade Name Freq PRN Reason Stop Dose Admin Acetaminophen 650 mg 11/19/24 17:38 Acetaminophen 325 Mg Tablet PO 12/19/24 17:37 Q4H PRN PRN PAIN, FEVER, HEADACHE Albuterol/Ipratropium 3 ml 11/19/24 19:00 11/21/24 01:10 Ipratropium/Albuterol Sulfate 3 Ml Ampul.Neb IH 12/19/24 18:59 3 ml Q6HRT LAURA Administration Apixaban 5 mg 11/19/24 22:00 11/20/24 21:13 Apixaban 2.5 Mg Tablet PO 12/19/24 21:59 5 mg BID LAURA Administration Carvedilol 3.125 mg 11/19/24 22:00 11/20/24 21:12 Carvedilol 3.125 Mg Tablet PO 12/19/24 21:59 3.125 mg BID LAURA Administration Clopidogrel Bisulfate 75 mg 11/20/24 11:00 11/20/24 10:52 Clopidogrel Bisulfate 75 Mg Tablet PO 12/20/24 10:59 75 mg DAILY LAURA Administration Methylprednisolone Sodium 0 mg 11/19/24 22:00 11/20/24 21:12 Succinate 40 mg/ Sterile Water IV 12/19/24 21:59 40 mg 1 ml Q12HT LAURA Administration Ergocalciferol 50,000 unit 11/19/24 17:45 Ergocalciferol (Vitamin D2) 50,000 Unit Capsule PO 12/19/24 17:44 WEEKLY LAURA Escitalopram Oxalate 10 mg 11/20/24 10:00 11/20/24 09:00 Escitalopram Oxalate 10 Mg Tablet PO 12/20/24 09:59 10 mg DAILY LAURA Administration Fluticasone Propionate 0 gm 11/20/24 10:00 11/20/24 21:14 Fluticasone Propionate 16 Gm Bottle Nasal [place] NS 12/20/24 09:59 1 gm BID LAURA Administration Furosemide 40 mg 11/19/24 17:45 11/20/24 17:22 Furosemide 40 Mg/4 Ml Vial IV 12/19/24 17:44 40 mg Q12H LAURA Administration Ceftriaxone Sodium 1 gm in 100 mls @ 200 mls/hr 11/20/24 10:00 11/20/24 10:18 Rocephin 1 Gm / 100 Ml Nacl IV 12/20/24 09:59 200 mls/hr Q24H10 LAURA Administration Azithromycin 500 mg/ Sodium 250 mls @ 250 mls/hr 11/20/24 10:00 11/20/24 09:01 Chloride IV 12/20/24 09:59 250 mls/hr Q24H10 LAURA Administration Insulin Human Lispro 0 unit 11/20/24 05:05 11/20/24 21:12 Insulin Lispro 1 Unit SQ 12/20/24 05:04 15 unit UD PRN Administration HYPERGLYCEMIA Nicotine 14 mg 11/19/24 17:45 11/20/24 17:22 Nicotine 14 Mg/Patch Patch TOP 12/19/24 17:44 14 mg Q24H LAURA Administration Ondansetron HCl 4 mg 11/19/24 17:38 Ondansetron Hcl 4 Mg/2 Ml Vial IV 12/19/24 17:37 Q6H PRN PRN NAUSEA/VOMITING Oxycodone/Acetaminophen 1 tab 11/19/24 19:37 11/20/24 21:13 Oxycodone Hcl/Apap 5 Mg/325 Mg Tablet PO 11/24/24 19:36 1 tab TID PRN PRN Administration PAIN Pantoprazole Sodium 40 mg 11/20/24 10:00 11/20/24 09:07 Pantoprazole 40 Mg Vial IV 12/19/24 17:44 40 mg Q24H10 LAURA Administration Potassium Chloride 10 meq 11/20/24 10:00 11/20/24 09:00 Potassium Chloride Tab 10 Meq Tab PO 12/20/24 09:59 10 meq QAM LAURA Administration Simvastatin 40 mg 11/19/24 22:00 11/20/24 21:13 Simvastatin 20 Mg Tablet PO 12/19/24 21:59 40 mg HS LAURA Administration Tamsulosin HCl 0.8 mg 11/20/24 10:00 11/20/24 09:00 Tamsulosin Hcl 0.4 Mg Cap PO 12/20/24 09:59 0.8 mg DAILY LAURA Administration Trazodone HCl 150 mg 11/19/24 22:00 11/20/24 21:13 Trazodone Hcl 50 Mg Tablet PO 12/19/24 21:59 150 mg QHS LAURA Administration Discontinued Medications Generic Name Dose Route Start Last Admin Trade Name Freq PRN Reason Stop Dose Admin Albuterol/Ipratropium 3 ml 11/19/24 12:21 11/19/24 12:35 Ipratropium/Albuterol Sulfate 3 Ml Ampul.Neb IH 11/19/24 12:22 3 ml STAT ONE Administration Albuterol/Ipratropium Confirm 11/19/24 12:28 Ipratropium/Albuterol Sulfate 3 Ml Ampul.Neb Administered 11/19/24 12:29 Dose 3 ml IH .STK-MED ONE Clopidogrel Bisulfate 75 mg 11/20/24 10:00 Clopidogrel Bisulfate 75 Mg Tablet PO 12/20/24 09:59 DAILY LAURA Clopidogrel Bisulfate 75 mg 11/21/24 10:00 Clopidogrel Bisulfate 75 Mg Tablet PO 12/21/24 09:59 DAILY LAURA Methylprednisolone Sodium 0 mg 11/19/24 15:30 11/19/24 15:43 Succinate 125 mg/ Sterile IV 11/19/24 15:31 125 mg Water 2 ml STAT ONE Administration Furosemide 40 mg 11/19/24 13:11 11/19/24 13:42 Furosemide 40 Mg/4 Ml Vial IV 11/19/24 13:12 40 mg STAT ONE Administration Furosemide Confirm 11/19/24 13:41 Furosemide 40 Mg/4 Ml Vial Administered 11/19/24 13:42 Dose 40 mg .ROUTE .STK-MED ONE Insulin Human Lispro 0 unit 11/19/24 17:38 11/19/24 21:45 Insulin Lispro 1 Unit SQ 12/19/24 17:37 12 unit UD PRN Administration HYPERGLYCEMIA Insulin Human Lispro Confirm 11/19/24 21:41 Insulin Lispro 1 Unit Administered 11/19/24 21:42 Dose 12 unit .ROUTE .STK-MED ONE Methylprednisolone Sodium Succinate Confirm 11/19/24 15:41 Methylprednis Sod Succ 125 Mg/2 Ml Vial Administered 11/19/24 15:42 Dose 125 mg .ROUTE .STK-MED ONE Methylprednisolone Sodium Succinate Confirm 11/19/24 21:02 Methylprednisolone Sod Suc 40m 40 Mg/Ml Vial Administered 11/19/24 21:03 Dose 40 mg .ROUTE .STK-MED ONE Non-Formulary Medication 200 mg 11/20/24 10:00 Lamotrigine [Lamictal] PO 12/20/24 09:59 DAILY LAURA Non-Formulary Medication 1 tab 11/19/24 17:42 Oxycodone Hcl/Acetaminophen [Oxycodone-Acetaminophn 7.5-325] PO TID PRN PAIN Non-Formulary Medication 20 mg 11/19/24 22:00 Rosuvastatin Calcium [Rosuvastatin Calcium] PO 12/19/24 21:59 HS LAURA Pantoprazole Sodium 40 mg 11/19/24 17:45 11/19/24 18:33 Pantoprazole 40 Mg Vial IV 12/19/24 17:44 40 mg Q24H LAURA Administration Sterile Water Confirm 11/19/24 15:41 Water For Injection,Sterile 10 Ml Vial Administered 11/19/24 15:42 Dose 10 ml IJ .STK-MED ONE Sterile Water Confirm 11/19/24 21:03 Water For Injection,Sterile 10 Ml Vial Administered 11/19/24 21:04 Dose 10 ml IJ .STK-MED ONE Multi-Disciplinary Progress Notes: Multi-Disciplinary Progress Notes 11/20/24 14:15 Respiratory Note by Marivel Contreras Patient's O2 sat is 88% on RA at rest. Patient placed on O2 at 2lpm per NC and O2 sat increased to 94% on 2lpm per NC at rest. Initialized on 11/20/24 14:15 - END OF NOTE Assessment/Plan (1) CHF exacerbation Current Visit: Yes Status: Acute Assessment & Plan: -CXR: borderline cardiomegaly, pulmonary edema, vascular congestion -BNP: 680 -Troponins negative 2 -IV furosemide 40 mg BID -daily weights and strict I/O/elevate HOB -Monitor electrolytes closely. -Repeat echocardiogram to assess EF and function -available Friday -Cardiology consult if poor response -PT follows with Dr. Beasley -EKG RATE (97), Sinus Rhythm, NORMAL AXIS, NORMAL INTERVALS, NORMAL QRS 11/20: -Supplemental oxygen for goal spo2 > 91% -Continue diuresis with 40mg bid -(-)1.4L balance/6.3 lb weight loss -trops - x 3 -CMP/CBC reviewed 11/21: -Continue diuresis with lasix 40mg bid -Echo Friday -CMP/CBC reviewed -RA currently with spo2 at 94%- monitor with prn oxygen as appropriate - Code(s): I50.9 - HEART FAILURE, UNSPECIFIED (2) Acute hypoxic respiratory failure Current Visit: Yes Status: Acute Assessment & Plan: -2/2 to CHF exac/? pnemonia -Supplemental oxygen titrated for spo2 goal > 89-91% -Currently patient is on RA -Ceftriaxone/Azithromycin to treat possible pneumonia -WBC reviewed at 14.2- add procal -Treat CHF exacerbation with Lasix 40mg BID -NEBs/INH -RT to follow -Solumedrol 40mg BID 11/20: -Continue ceftriaxone/azithromycin -Solumedrol 40mg bid - continue -Procal WNL -WBC reviewed at 10-improved -Currently on 2L oxygen with spo2 at 94%- wean as appropriate 11/21: -trialed RA- later desaturated to 89%- placed back on 2L oxygen -Continue solumedrol- transition to prednisone 40mg daily -Continue Ceftriaxone (last day for azithromycin to complete course of 1500mg) -Continue diuresis for CHF with Echo planned Friday Code(s): J96.01 - ACUTE RESPIRATORY FAILURE WITH HYPOXIA (3) Pneumonia Current Visit: Yes Status: Acute Assessment & Plan: -See ARF Code(s): J18.9 - PNEUMONIA, UNSPECIFIED ORGANISM (4) Hyponatremia Current Visit: Yes Status: Acute Assessment & Plan: -Mild at 131in the setting of fluid overload -monitor daily -Adjust diuretic regimen as needed 11/21: -In the setting of CHF and hyperglycemia -Sodium reviewed at 132-improved -CMP daily Code(s): E87.1 - HYPO-OSMOLALITY AND HYPONATREMIA (5) CAD (coronary artery disease) Current Visit: Yes Status: Acute Assessment & Plan: -continue plavix/statin -Patient states he is on Plavix 11/20 - will resume Code(s): I25.10 - ATHSCL HEART DISEASE OF [place] CORONARY ARTERY W/O ANG PCTRS (6) HTN (hypertension) Current Visit: Yes Status: Acute Assessment & Plan: -Stable continue home regimen Code(s): I10 - ESSENTIAL (PRIMARY) HYPERTENSION (7) HLD (hyperlipidemia) Current Visit: Yes Status: Acute Assessment & Plan: -continue statin Code(s): E78.5 - HYPERLIPIDEMIA, UNSPECIFIED (8) DMII (diabetes mellitus, type 2) Current Visit: Yes Status: Acute Assessment & Plan: -ADA diet -SSI- increased to high dose with steroids/add 5 units TIDWM -A1c -pending (9) Depression Current Visit: Yes Status: Acute Assessment & Plan: Continue home meds Code(s): F32.A - DEPRESSION, UNSPECIFIED (10) Smoker Current Visit: Yes Status: Acute Assessment & Plan: -Advised Cessation -Nicotine patch offered for IP and home- patient would like to try OP Code(s): F17.200 - NICOTINE DEPENDENCE, UNSPECIFIED, UNCOMPLICATED (11) History of DVT (deep vein thrombosis) Current Visit: Yes Status: Acute Assessment & Plan: -Diagnosed 6 year ago- left leg -continue home eliquis VTE: Eliquis PPI: Protonix Dispo: 1-2 days Code Status: Full Code Plan of care time spent > 40 mins Code(s): I50.9 - HEART FAILURE, UNSPECIFIED (2) Acute hypoxic respiratory failure Current Visit: Yes Status: Acute Code(s): J96.01 - ACUTE RESPIRATORY FAILURE WITH HYPOXIA (3) Pneumonia Current Visit: Yes Status: Acute Code(s): J18.9 - PNEUMONIA, UNSPECIFIED ORGANISM (4) Hyponatremia Current Visit: Yes Status: Acute Code(s): E87.1 - HYPO-OSMOLALITY AND HYPONATREMIA (5) CAD (coronary artery disease) Current Visit: Yes Status: Acute Code(s): I25.10 - ATHSCL HEART DISEASE OF [place] CORONARY ARTERY W/O ANG PCTRS (6) HTN (hypertension) Current Visit: Yes Status: Acute Code(s): I10 - ESSENTIAL (PRIMARY) HYPERTENSION (7) HLD (hyperlipidemia) Current Visit: Yes Status: Acute Code(s): E78.5 - HYPERLIPIDEMIA, UNSPECIFIED (8) DMII (diabetes mellitus, type 2) Current Visit: Yes Status: Acute (9) Depression Current Visit: Yes Status: Acute Code(s): F32.A - DEPRESSION, UNSPECIFIED (10) Smoker Current Visit: Yes Status: Acute Code(s): F17.200 - NICOTINE DEPENDENCE, UNSPECIFIED, UNCOMPLICATED (11) History of DVT (deep vein thrombosis) Current Visit: Yes Status: Acute Code(s): Z86.718 - PERSONAL HISTORY OF OTHER VENOUS THROMBOSIS AND EMBOLISM
[2024-11-21 05:53] LABS: BASOPHIL % 0.2 % (0.2-1.2); Basophil (Absolute #) 0.03 x10^3/uL (0.01-0.08); Eosinophil (Absolute #) 0 x10^3/uL (0.04-0.54); Hematocrit 39.5 % (40.1-51.0); Hemoglobin 13.5 g/dL (13.7-17.5); IMMATURE GRAN # 0.13 x10^3u/L (0.001-0.031); IMMATURE GRAN % 0.8 % (0.001-0.429); Lymphocyte (Absolute #) 1.03 x10^3/uL (1.32-3.57); Mean Corpuscular Hemoglobin 29.0 pg (25.7-32.2); Mean Corpuscular Hgb Concent. 34.2 g/dL (32.3-36.5); Monocyte (Absolute #) 0.90 x10^3/uL (0.30-0.82); NUCLEATED RBC # 0.00 x10^3u/L (0.00-0.012); NUCLEATED RBC % 0.0 % (0.00-0.2); Platelet Count 294 x10^3/uL (163-337); Red Blood Count 4.65 x10^6/uL (4.63-6.08); White Blood Count 15.7 x10^3/uL (4.23-9.07)
[2024-11-21 06:17] LABS: Calcium 9.0 mg/dL (8.4-10.2); Carbon Dioxide 29.0 mmol/L (22-30); Creatinine 1 0.96 mg/dL (0.66-1.25); EST GLOMERULAR FILTRATION RATE 88.8 ML/MIN; Glucose 294.0 mg/dL (74-106); Potassium 4.8 mmol/L (3.5-5.1); SGOT/AST 19.0 U/L (17-59); SGPT/ALT 17.0 U/L (0-50); Total Protein 7.4 g/dL (6.3-8.2)
[2024-11-21] MEDS ORDERED: PLAVIX Tablet PO SCH (10:00)
[2024-11-21] MEDS: HUMALOG SQ SCH (10:48)
[2024-11-21] MEDS: DELTASONE 20 MG PO SCH (10:54)
[2024-11-21] MEDS: Mucinex 600MG ER Tabs PO SCH (10:55)
[2024-11-22 05:10] LABS: BASOPHIL % 0.2 % (0.2-1.2); Basophil (Absolute #) 0.03 x10^3/uL (0.01-0.08); Eosinophil (Absolute #) 0.04 x10^3/uL (0.04-0.54); Hematocrit 38.2 % (40.1-51.0); Hemoglobin 12.7 g/dL (13.7-17.5); IMMATURE GRAN # 0.13 x10^3u/L (0.001-0.031); IMMATURE GRAN % 0.7 % (0.001-0.429); Lymphocyte (Absolute #) 1.17 x10^3/uL (1.32-3.57); Mean Corpuscular Hemoglobin 28.4 pg (25.7-32.2); Mean Corpuscular Hgb Concent. 33.2 g/dL (32.3-36.5); Monocyte (Absolute #) 1.86 x10^3/uL (0.30-0.82); NUCLEATED RBC # 0.00 x10^3u/L (0.00-0.012); NUCLEATED RBC % 0.0 % (0.00-0.2); Platelet Count 287 x10^3/uL (163-337); Red Blood Count 4.47 x10^6/uL (4.63-6.08); White Blood Count 17.7 x10^3/uL (4.23-9.07)
[2024-11-22 05:36] LABS: Calcium 8.7 mg/dL (8.4-10.2); Carbon Dioxide 28.0 mmol/L (22-30); Creatinine 1 0.85 mg/dL (0.66-1.25); EST GLOMERULAR FILTRATION RATE 97.6 ML/MIN; Glucose 203.0 mg/dL (74-106); Potassium 4.2 mmol/L (3.5-5.1); SGOT/AST 18.0 U/L (17-59); SGPT/ALT 17.0 U/L (0-50); Total Protein 7.0 g/dL (6.3-8.2)
[2024-11-22 07:00] VITALS: RESP 16
[2024-11-22] MEDS: HUMALOG SQ SCH (08:13)
[2024-11-22] MEDS: Lantus Insulin SQ SCH (09:20)
--- NOTE | 2024-11-22 11:26 | PCM.DS ---
Discharge Summary Date of Admission: 11/19/24 16:36 Date of Discharge: 11/22/24 Admitting Physician: DEMETRIA MCKINNON MD Primary Care Provider: SUZY DUNBAR Allergies Allergies No Known Drug Allergies Allergy (Verified 11/19/24 12:07) Hospital Summary - Hospital Course Hospital Course: A 64-year-old male with a history of congestive heart failure, coronary artery disease with prior stent placement, hypertension, hyperlipidemia, left leg DVT, diabetes, depression, and sciatica presented to the ED on 11/19/24 with acute onset shortness of breath that began the previous evening and disrupted his sleep. He also reported a chronic productive cough ongoing for about a month, without fever, chest pain, or sick contacts. At baseline, he is on furosemide 20 mg daily. On arrival, he was tachypneic and hypoxic, requiring 2 L oxygen. He was treated with IV diuretics, steroids, and bronchodilators, which improved his respiratory status, allowing him to maintain oxygen saturations on room air. Chest X-ray showed borderline cardiomegaly, pulmonary congestion, and mild edema consistent with early CHF exacerbation, with pneumonia not fully ruled out. Labs revealed leukocytosis, hyponatremia, hypochloremia, elevated anion gap, and elevated pro-BNP (680); serial troponins were negative. Over the following days, he reported gradual improvement in dyspnea and cough, though he remained on 2 L oxygen due to desaturation with room air trials. Pulmonary exam showed persistent coarse crackles and wheezing. He continued on IV antibiotics, transitioned to oral prednisone, and echocardiogram was scheduled to assess cardiac function. By 11/22, he was stable, saturating at 94% on room air, and reported feeling significantly better. Lung sounds were clear, and he expressed readiness for discharge. WBC remained elevated, likely due to steroid use. Blood cultures were negative, and sputum culture results are pending. He will follow up outpatient with cardiology and primary care. - Vitals & Intake/Output Vital Signs: Vital Signs Temperature 97.8 F 11/22/24 07:16 Pulse Rate 77 11/22/24 07:16 Respiratory Rate 16 11/22/24 07:16 Blood Pressure 151/77 11/22/24 07:16 O2 Sat by Pulse Oximetry 94 L 11/22/24 07:16 Intake & Output: Intake & Output 11/19/24 11/20/24 11/21/24 11/22/24 11:59 11:59 11:59 11:59 Intake Total 1360 1680 1850 Output Total 2803 2600 4929 Balance -1440 -920 -3130 Weight 99.79 kg 96.9 kg 96.3 kg 96.4 kg - Lab Result Diagrams: 11/22/24 05:00 11/22/24 05:00 Lab Results-Last 24 Hrs: Lab Results-Last 24 Hours 11/21/24 11/21/24 11/21/24 Range/Units 12:11 16:35 21:32 WBC (4.23-9.07) x10^3/uL RBC (4.63-6.08) x10^6/uL Hgb (13.7-17.5) g/dL Hct (40.1-51.0) % MCV (79.0-92.2) fL MCH (25.7-32.2) pg MCHC (32.3-36.5) g/dL RDW (11.6-14.4) % Plt Count (163-337) x10^3/uL MPV (9.4-12.4) fL Gran % (34.0-67.9) % Immature Gran % (Auto) (0.001-0.429) % Nucleat RBC Rel Count (0.00-0.2) % Eos # (Auto) (0.04-0.54) x10^3/uL Immature Gran # (Auto) (0.001-0.031) x10^3u/L Absolute Lymphs (auto) (1.32-3.57) x10^3/uL Absolute Monos (auto) (0.30-0.82) x10^3/uL Absolute Nucleated RBC (0.00-0.012) x10^3u/L Lymphocytes % (21.8-53.1) % Monocytes % (5.3-12.2) % Eosinophils % (0.8-7.0) % Basophils % (0.2-1.2) % Absolute Granulocytes (1.78-5.38) x10^3/uL Basophils # (0.01-0.08) x10^3/uL Sodium (135-145) mmol/L Potassium (3.5-5.1) mmol/L Chloride (98-107) mmol/L Carbon Dioxide (22-30) mmol/L Anion Gap (5-15) MEQ/L BUN (9-20) mg/dL Creatinine (0.66-1.25) mg/dL Estimated GFR ML/MIN Glucose (74-106) mg/dL POC Glucometer 165 H 264 H 513 H* (74 to 106) mg/dL Calcium (8.4-10.2) mg/dL Total Bilirubin (0.2-1.3) mg/dL AST (17-59) U/L ALT (0-50) U/L Alkaline Phosphatase (38-126) U/L Serum Total Protein (6.3-8.2) g/dL Albumin (3.5-5.0) g/dL 11/21/24 11/22/24 11/22/24 Range/Units 21:43 00:02 05:00 WBC 17.7 H (4.23-9.07) x10^3/uL RBC 4.47 L (4.63-6.08) x10^6/uL Hgb 12.7 L (13.7-17.5) g/dL Hct 38.2 L (40.1-51.0) % MCV 85.5 (79.0-92.2) fL MCH 28.4 (25.7-32.2) pg MCHC 33.2 (32.3-36.5) g/dL RDW 14.5 H (11.6-14.4) % Plt Count 287 (163-337) x10^3/uL MPV 9.4 (9.4-12.4) fL Gran % 81.8 H (34.0-67.9) % Immature Gran % (Auto) 0.7 H (0.001-0.429) % Nucleat RBC Rel Count 0.0 (0.00-0.2) % Eos # (Auto) 0.04 (0.04-0.54) x10^3/uL Immature Gran # (Auto) 0.13 H (0.001-0.031) x10^3u/L Absolute Lymphs (auto) 1.17 L (1.32-3.57) x10^3/uL Absolute Monos (auto) 1.86 H (0.30-0.82) x10^3/uL Absolute Nucleated RBC 0.00 (0.00-0.012) x10^3u/L Lymphocytes % 6.6 L (21.8-53.1) % Monocytes % 10.5 (5.3-12.2) % Eosinophils % 0.2 L (0.8-7.0) % Basophils % 0.2 (0.2-1.2) % Absolute Granulocytes 14.42 H (1.78-5.38) x10^3/uL Basophils # 0.03 (0.01-0.08) x10^3/uL Sodium (135-145) mmol/L Potassium (3.5-5.1) mmol/L Chloride (98-107) mmol/L Carbon Dioxide (22-30) mmol/L Anion Gap (5-15) MEQ/L BUN (9-20) mg/dL Creatinine (0.66-1.25) mg/dL Estimated GFR ML/MIN Glucose 506 H* (74-106) mg/dL POC Glucometer 366 H (74 to 106) mg/dL Calcium (8.4-10.2) mg/dL Total Bilirubin (0.2-1.3) mg/dL AST (17-59) U/L ALT (0-50) U/L Alkaline Phosphatase (38-126) U/L Serum Total Protein (6.3-8.2) g/dL Albumin (3.5-5.0) g/dL 11/22/24 11/22/24 Range/Units 05:00 07:31 WBC (4.23-9.07) x10^3/uL RBC (4.63-6.08) x10^6/uL Hgb (13.7-17.5) g/dL Hct (40.1-51.0) % MCV (79.0-92.2) fL MCH (25.7-32.2) pg MCHC (32.3-36.5) g/dL RDW (11.6-14.4) % Plt Count (163-337) x10^3/uL MPV (9.4-12.4) fL Gran % (34.0-67.9) % Immature Gran % (Auto) (0.001-0.429) % Nucleat RBC Rel Count (0.00-0.2) % Eos # (Auto) (0.04-0.54) x10^3/uL Immature Gran # (Auto) (0.001-0.031) x10^3u/L Absolute Lymphs (auto) (1.32-3.57) x10^3/uL Absolute Monos (auto) (0.30-0.82) x10^3/uL Absolute Nucleated RBC (0.00-0.012) x10^3u/L Lymphocytes % (21.8-53.1) % Monocytes % (5.3-12.2) % Eosinophils % (0.8-7.0) % Basophils % (0.2-1.2) % Absolute Granulocytes (1.78-5.38) x10^3/uL Basophils # (0.01-0.08) x10^3/uL Sodium 131 L (135-145) mmol/L Potassium 4.2 (3.5-5.1) mmol/L Chloride 94 L (98-107) mmol/L Carbon Dioxide 28 (22-30) mmol/L Anion Gap 12.5 (5-15) MEQ/L BUN 20 (9-20) mg/dL Creatinine 0.85 (0.66-1.25) mg/dL Estimated GFR 97.6 ML/MIN Glucose 203 H (74-106) mg/dL POC Glucometer 203 H (74 to 106) mg/dL Calcium 8.7 (8.4-10.2) mg/dL Total Bilirubin 0.30 (0.2-1.3) mg/dL AST 18 (17-59) U/L ALT 17 (0-50) U/L Alkaline Phosphatase 75 (38-126) U/L Serum Total Protein 7.0 (6.3-8.2) g/dL Albumin 4.0 (3.5-5.0) g/dL Micro Results-Entire Visit: Microbiology 11/19/24 12:36 Blood Culture - Preliminary Blood 11/19/24 12:32 Blood Culture - Preliminary Blood Accuchecks Date 11/22/24 Date 11/21/24 Date 11/21/24 Time 07:41 Time 16:55 Time 12:15 - Radiology Exams Ordered Rad Exams-Entire Visit: Radiology Procedures Category Date Time Status ECHO W/2D AND DOPPLER [US] Routine Exams 11/22/24 05:00 Taken - Procedures and Test Procedures and Tests throughout Hospitalization: Therapy Orders & Screens 11/19/24 12:40 Respiratory Therapy Assessment DAILY Comment: 11/19/24 16:45 Oxygen Nasal Cannula 2 lpm Comment: Respiratory Therapy Consult ONCE Comment: Reason For Exam: 11/19/24 17:39 Smoking Cessation Education ONCE Comment: Diagnosis: shortness of breath Smoking Status: Current every day smoker How long have you smoked: 30 yrs Have you smoked in the past 12 months: No Approximately how many cigarettes per day: 3 cigarettes per day Do you dip or chew tobacco: Yes If,Former Smoker,when did you quit: 17 months ago 11/21/24 10:02 FLUTTER [Flutter Therapy] UD Comment: Diagnosis: shortness of breath Discharge Exam General Appearance: no apparent distress, alert Neurologic Exam: alert, oriented x 3, cooperative, normal mood/affect, nml cerebellar function, sensation nml, No motor deficits Eye Exam: PERRL, EOMI, eyes nml inspection Ears, Nose, Throat Exam: normal ENT inspection, pharynx normal, moist mucous membranes Neck Exam: normal inspection, non-tender, supple, full range of motion Respiratory Exam: normal breath sounds, lungs clear, No respiratory distress Cardiovascular Exam: regular rate/rhythm, normal heart sounds Gastrointestinal/Abdomen Exam: soft, No tenderness, No mass Male Genitalia Exam: deferred Rectal Exam: deferred Back Exam: normal inspection, normal range of motion, No CVA tenderness, No vertebral tenderness Extremity Exam: normal inspection, normal range of motion Skin Exam: normal color, warm, dry Final Diagnosis/Problem List - Final Discharge Diagnosis/Problem (1) Pneumonia Current Visit: Yes Status: Acute Assessment & Plan: - RA 94% - Lungs clear - Continue steroids, antibiotics OP - CBC, CMP reviewed - WBC 17.7- likely 2:2 steroids Code(s): J18.9 - PNEUMONIA, UNSPECIFIED ORGANISM (2) CHF (congestive heart failure) Current Visit: Yes Status: Acute Code(s): I50.9 - HEART FAILURE, UNSPECIFIED (3) Hyponatremia Current Visit: Yes Status: Acute Assessment & Plan: - Mild- Na+131 Code(s): E87.1 - HYPO-OSMOLALITY AND HYPONATREMIA (4) DMII (diabetes mellitus, type 2) Current Visit: Yes Status: Chronic Assessment & Plan: - ADA diet - Accuchecks AC/HS - SSI, Humalog 15 units with meals and Lantus BID - A1c -6.67- controlled (5) Depression Current Visit: Yes Status: Chronic Assessment & Plan: - Continue home meds Code(s): F32.A - DEPRESSION, UNSPECIFIED (6) HLD (hyperlipidemia) Current Visit: Yes Status: Chronic Assessment & Plan: - continue statin Code(s): E78.5 - HYPERLIPIDEMIA, UNSPECIFIED (7) HTN (hypertension) Current Visit: Yes Status: Chronic Assessment & Plan: -Stable continue home regimen Code(s): I10 - ESSENTIAL (PRIMARY) HYPERTENSION (8) History of DVT (deep vein thrombosis) Current Visit: Yes Status: Chronic Assessment & Plan: - Diagnosed 6 year ago- left leg - continue home eliquis Code(s): Z86.718 - PERSONAL HISTORY OF OTHER VENOUS THROMBOSIS AND EMBOLISM (9) Smoker Current Visit: Yes Status: Chronic Assessment & Plan: - advised cessation - nicotine patch - Can buy OTC nicotine patch or use 1800quit now information. Code(s): F17.200 - NICOTINE DEPENDENCE, UNSPECIFIED, UNCOMPLICATED (10) Acute hypoxic respiratory failure Current Visit: Yes Status: Resolved Assessment & Plan: - Resolved - 2:2 pneumonia - RA 94% Code(s): J96.01 - ACUTE RESPIRATORY FAILURE WITH HYPOXIA (11) CAD (coronary artery disease) Current Visit: Yes Status: Chronic Assessment & Plan: -continue plavix/statin D/C plan time of care > 45 minutes D/C meds new: augmentin, doxycycline, prednisone Will continue to follow sputum culture OP Code(s): I25.10 - ATHSCL HEART DISEASE OF [place] CORONARY ARTERY W/O ANG PCTRS - Discharge Discharge Date: 11/22/24 Disposition: Home, Self-Care Condition: Stable Prescriptions: New Doxycycline Hyclate 100 mg [Vibramycin 100 MG] 100 mg PO BID 5 Days #10 tab Amox Tr/Potass Clav. 875 mg [Augmentin 875-125 Tablet] 875 mg PO BID 5 Days #10 tablet Methylprednisolone Packet [Medrol Dosepack] 4 mg PO UD 6 Days #30 packet Continue Furosemide 20 mg [Lasix 20 mg] 20 mg PO QAM Metformin HCl 500 mg [Glucophage 500 MG] 1 tab PO BID Tamsulosin HCl 0.4 mg [Flomax 0.4 MG] 0.8 mg PO DAILY Potassium Chloride [K-Dur] 10 meq PO QAM Trazodone HCl 50 mg [Desyrel 50 mg] 150 mg PO QHS Apixaban [Eliquis 2.5 mg Tablet] 5 mg PO BID Carvedilol 3.125 mg [Coreg 3.125 MG] 3.125 mg PO BID Ergocalciferol (Vitamin D2) [Vitamin D2] 50,000 unit PO WEEKLY Escitalopram Oxalate [Lexapro] 10 mg PO DAILY Glipizide 10 mg [Glucotrol 10 MG] 20 mg PO BID Oxycodone HCl/Acetaminophen [Oxycodone-Acetaminophn 7.5-325] 1 tab PO TID PRN PRN Reason: Pain Rosuvastatin Calcium 20 mg PO HS Semaglutide [Ozempic] 2 mg SQ WEEKLY Sildenafil Citrate 100 mg PO .30 MIN PRIOR TO SEX PRN PRN Reason: sex Fluticasone Propionate [Flonase Nasal] 16 gm NS BID Clopidogrel Bisulfate [Plavix] 75 mg PO DAILY Instructions: Pneumonia in adults, Heart failure in adults - Discharge instructions Additional Instructions: * If you found Mucinex helpful you can buy this OTC. Follow up with: SUZY DUNBAR NP [Primary Care Provider, [facility]] - 11/29/24 11:00 am
[2024-11-22 11:45] VITALS: TEMP 97.9
[2024-11-22] MEDS: HUMULIN R IV ONE (15:06)
[2024-11-22 15:08] LABS: Albumin 3.7 g/dL (2.9-4.4); Alpha-1-Globulin 0.3 g/dL (0.0-0.4); Alpha-2-Globulin 1.4 g/dL (0.4-1.0); Gamma Globulin 0.8 g/dL (0.4-1.8)
[2024-11-22 16:29] VITALS: BP 155/86; PULSE 86; O2SAT 97
== END 2024-11-22 18:00 | disposition home or self-care (01) ==
LOC: ED 11:53 → MED SURG 16:36
PROVIDERS: ADMIT Internal Medicine; ATTEND Internal Medicine
DX: J18.9 Pneumonia, unspecified organism (principal); I11.0 Hypertensive heart disease with heart failure; I50.9 Heart failure, unspecified; E87.1 Hypo-osmolality and hyponatremia; E11.9 Type 2 diabetes mellitus without complications; F32.A Depression, unspecified; E78.5 Hyperlipidemia, unspecified; Z86.718 Personal history of other venous thrombosis and embolism; F17.200 Nicotine dependence, unspecified, uncomplicated; J96.01 Acute respiratory failure with hypoxia; I25.10 Atherosclerotic heart disease of native coronary artery without angina pectoris; Z79.01 Long term (current) use of anticoagulants; Z79.899 Other long term (current) drug therapy
CPT/HCPCS: 36415; 71045; 80053; 81001; 82947; 83036; 83521; 83605; 83880; 84145; 84165; 84484; 85025; 87040; 93005; 93306; 94640; 94667; 94668; 94760; 94762; 96374; 99285; Q3014

== ENCOUNTER 2025-01-05 07:15 | Day surgery (SDC) | payer MEDICARE ==
[2012-11-13 13:15] VITALS: BP 148/93
[2025-01-05] MEDS ORDERED: LIDOCAINE HCL 1% 50 MG/5 ML VL IJ ONE (07:16)
[2025-01-05] MEDS ORDERED: BUPIVACAINE 0.5% VIAL IJ ONE (07:16)
[2025-01-05] MEDS ORDERED: methylPREDNISolone acetate IM ONE (07:16)
[2025-01-05] MEDS ORDERED: propofoL IV ONE (08:54)
[2025-01-05] MEDS ORDERED: Lactated Ringers 1,000 ML IV ONE (09:47)
--- NOTE | 2025-01-05 12:01 | XRAY ---
Indication: Left L5-L6-S1 RFA. Intraoperative fluoroscopy provided for 34 seconds. 3 digital spot image submitted for interpretation demonstrates posterior needle tips projecting over expected left L5-L6-S1 nerve roots. Correlate with intraoperative findings/report.
--- NOTE | 2025-01-05 12:10 | XRAY ---
34 seconds of fluoroscopy was used in surgery for a left L5-L6 and L6-S1 RFA.
== END 2025-01-05 09:37 | disposition home or self-care (01) ==
LOC: SDC-PAIN 07:15
PROVIDERS: ATTEND Psychiatry & Neurology Pain Medicine
DX: M47.817 Spondylosis without myelopathy or radiculopathy, lumbosacral region (principal); E11.9 Type 2 diabetes mellitus without complications